=== PATIENT | female | born 1995 | race Caucasian/White ===

== ENCOUNTER 2022-12-16 12:40 | Outpatient (CLI) | payer BC, SELFPAY ==
--- NOTE | 2022-12-16 13:00 | CRLHL7_ITS ---
For Patients: As a result of the Cures Act, medical imaging exams and procedure reports are released immediately into your electronic medical record. You may view this report before your referring provider. If you have questions, please contact your health care provider. INDICATION: First trimester scan, establish dates. COMPARISON: None. TECHNIQUE: Real-time sharif-scale imaging of the pelvis was performed. FINDINGS: Sonographic imaging demonstrates a single living intrauterine gestation. The embryo demonstrates a regular cardiac rate measuring 180 beats per minute. The embryo`s crown-rump length measurement of 2.1 cm corresponds to a gestational age of 8 weeks 5 days with a sonographic due date of 07/23/2023. There is a normal-appearing yolk sac. There are no gross abnormalities noted within the embryo at this early state of development. The gestational sac has a normal appearance. There is a 3.6 x 1.1 x 2.1 cm perigestational hemorrhage. The amount of fluid within the sac appears appropriate for gestational age. The cervix is closed. The myometrium appears normal. The ovaries are of normal size. Corpus luteal left ovarian cyst is noted. There are no suspicious fluid collections noted in the cul-de-sac. IMPRESSION: Single living intrauterine with sonographic gestational age 8 weeks 5 days and sonographic due date 07/23/2023. Inferior subchorionic hemorrhage measuring 3.6 x 1.1 x 2.1 cm. Dictated by Jaya Parra MD @ 12/17/2022 5:57:43 AM (Electronically Signed)
== END 2022-12-16 12:41 | disposition home or self-care (01) ==
LOC: US 12:42
PROVIDERS: Visit Provider Advanced Practice Midwife
DX: Z34.91 Encounter for supervision of normal pregnancy, unspecified, first trimester (principal); Z3A.08 8 weeks gestation of pregnancy
CPT/HCPCS: 76817; 86703; 86803; 86850; 86900; 86901; 87340

== ENCOUNTER 2022-12-16 14:02 | Outpatient (CLI) | payer BC, SELFPAY | END 2022-12-16 14:03 | disposition home or self-care (01) | PROVIDERS: Visit Provider Advanced Practice Midwife | DX: Z34.91 Encounter for supervision of normal pregnancy, unspecified, first trimester (principal); O20.9 Hemorrhage in early pregnancy, unspecified; Z3A.08 8 weeks gestation of pregnancy | CPT/HCPCS: 86592; 86703; 86762; 86787; 86803; 86850; 86900; 86901; 87086; 87340 ==

== ENCOUNTER 2022-12-30 10:23 | Outpatient (CLI) | payer BC, SELFPAY | END 2022-12-30 10:24 | disposition home or self-care (01) | PROVIDERS: Visit Provider Advanced Practice Midwife | DX: O20.9 Hemorrhage in early pregnancy, unspecified (principal) | CPT/HCPCS: 84702 ==

== ENCOUNTER 2022-12-31 14:47 | Outpatient (CLI) | payer BC, SELFPAY ==
--- NOTE | 2022-12-31 15:00 | CRLHL7_ITS ---
For Patients: As a result of the Century Cures Act, medical imaging exams and procedure reports are released immediately into your electronic medical record. You may view this report before your referring provider. If you have questions, please contact your health care provider. INDICATION: First trimester scan, establish dates. COMPARISON: 12/16/2022 TECHNIQUE: Real-time sharif-scale imaging of the pelvis was performed. FINDINGS: Sonographic imaging demonstrates a single living intrauterine gestation. The embryo demonstrates a regular cardiac rate measuring 176 beats per minute. The embryo`s crown-rump length measurement of 4.2 cm corresponds to a gestational age of 11 weeks 1 day with a sonographic due date of 07/21/2023. There is a normal-appearing yolk sac. There are no gross abnormalities noted within the embryo at this early state of development. The gestational sac has a normal appearance. There is no evidence of a perigestational hemorrhage. The amount of fluid within the sac appears appropriate for gestational age. The cervix is closed. The myometrium appears normal. Right ovary appears normal. Left ovary not visualized. There are no suspicious fluid collections noted in the cul-de-sac. IMPRESSION: Single living intrauterine with sonographic gestational age 11 weeks 1 day and sonographic due date 07/21/2023. Small right fundal subchorionic hemorrhage measuring 5 x 7 x 6 millimeters. Previously noted inferior subchorionic hemorrhage is no longer present. Dictated by Jaya Parra MD @ 12/31/2022 4:43:57 PM (Electronically Signed)
== END 2022-12-31 14:48 | disposition home or self-care (01) ==
LOC: US 14:47
PROVIDERS: Visit Provider Advanced Practice Midwife
DX: Z34.91 Encounter for supervision of normal pregnancy, unspecified, first trimester (principal); O20.9 Hemorrhage in early pregnancy, unspecified; Z3A.11 11 weeks gestation of pregnancy
CPT/HCPCS: 76817

== ENCOUNTER 2023-03-10 07:55 | Outpatient (CLI) | payer SELFPAY ==
--- NOTE | 2023-03-10 08:15 | CRLHL7_ITS ---
For Patients: As a result of the Century Cures Act, medical imaging exams and procedure reports are released immediately into your electronic medical record. You may view this report before your referring provider. If you have questions, please contact your health care provider. INDICATION: Evaluate anatomy. COMPARISON: 12/31/2022 TECHNIQUE: Real time shairf scale imaging of the fetus was performed as well as color Doppler analysis of the umbilical vessels. FINDINGS: Sonographic imaging demonstrates a single living intrauterine gestation. Fetus demonstrates a regular cardiac rate of 147 beats per minute. Fetus has a vertex position. The placenta lies posteriorly without evidence of placenta previa. The edge of the placenta is located 10.7 cm from the internal cervical os. Amniotic fluid volume appears normal. Single deepest vertical pocket: 3.6 cm. The cervix is closed and measures 3.5 cm in length. The composite ultrasound gestational age is calculated at 21 weeks 1 day with an estimated sonographic due date of 07/20/2023. The estimated weight is 404 grams which lies at the 70th %. The following biometric measurements were obtained: Biparietal diameter: 5.0 cm/21 weeks 0 days 63rd% Head circumference: 18.6 cm/20 weeks 6 days 51st% Abdominal circumference: 17.0 cm/22 weeks 0 days 83rd% Femur length: 3.3 cm/20 weeks 1 day 24th% The HC/AC ratio measures: 1.09 range (1.06-1.25) On anatomic survey, there is a normal appearance of the cerebral ventricles, cavum septi pellucidi, cisterna magna and cerebellum. The nose, lips, and facial profile appear normal. The cervical, thoracic and lumbar spine are well visualized and appear normal. There is a normal four-chamber heart view and the left and right ventricular outflow tracts appear normal. The diaphragm and stomach appear normal. The kidneys and bladder also appear normal. There is a normal three-vessel cord and cord insertion site. The four extremities appear normal. IMPRESSION: Normal OB ultrasound exam with concordance of clinical and sonographic dating. No intrinsic abnormalities noted on anatomic survey. Dictated by Jaya Parra MD @ 03/10/2023 9:48:11 AM (Electronically Signed)
== END 2023-03-10 07:56 | disposition home or self-care (01) ==
LOC: US 07:56
PROVIDERS: Visit Provider Advanced Practice Midwife
DX: Z34.92 Encounter for supervision of normal pregnancy, unspecified, second trimester (principal); Z3A.21 21 weeks gestation of pregnancy
CPT/HCPCS: 76805

== ENCOUNTER 2023-04-28 08:39 | Outpatient (CLI) | payer SELFPAY | END 2023-04-28 08:40 | disposition home or self-care (01) | LOC: NFLDREF 05-02 00:10 | PROVIDERS: Visit Provider Advanced Practice Midwife | DX: Z34.93 Encounter for supervision of normal pregnancy, unspecified, third trimester (principal) | CPT/HCPCS: 86592 ==

== ENCOUNTER 2023-05-30 06:54 | Outpatient (CLI) | payer BC, SELFPAY ==
--- NOTE | 2023-05-30 07:15 | CRLHL7_ITS ---
For Patients: As a result of the Century Cures Act, medical imaging exams and procedure reports are released immediately into your electronic medical record. You may view this report before your referring provider. If you have questions, please contact your health care provider. INDICATION: 28 year-old female. History of intrauterine growth retardation with a prior . TECHNIQUE: Transabdominal obstetrical ultrasound. FINDINGS: Single living intrauterine in vertex presentation. Posterior placenta. heart rate 125 beats per minute. Normal amniotic fluid. Single deepest pocket measurement 5.1 cm. Biparietal diameter 8.2 cm, 32 weeks 6 days, 57th percentile. Head circumference 29.4 cm, 32 weeks 3 days, 17th percentile. Abdominal circumference 30.9 cm, 34 weeks 6 days, greater than the 97th percentile. Femur length 6.1 cm, 31 weeks 4 days, 20th percentile. Composite calculated ultrasound age 33 weeks 0 days with a sonographic due date of July 18, 2023. Estimated weight 2212 g which lies at the 78th percentile. The head to abdominal circumference ratio is just below the lower limit of normal measuring 0.95 (0.96-1.11). IMPRESSION: Single living intrauterine in vertex presentation. Composite calculated ultrasound age 33 weeks 0 days with a sonographic due date of July 18, 2023. Dictated by Leonard Arriaza MD @ 05/30/2023 9:52:04 AM (Electronically Signed)
== END 2023-05-30 06:55 | disposition home or self-care (01) ==
PROVIDERS: Visit Provider Advanced Practice Midwife
DX: O09.293 Supervision of pregnancy with other poor reproductive or obstetric history, third trimester (principal); Z87.59 Personal history of other complications of pregnancy, childbirth and the puerperium; Z3A.33 33 weeks gestation of pregnancy
CPT/HCPCS: 76816

== ENCOUNTER 2023-06-28 09:22 | Outpatient (CLI) | payer BC, SELFPAY ==
[2023-06-29 12:30] LABS: Strep B DNA Probe Negative (Negative); Strep B Susceptibility Needed? No
== END 2023-06-28 09:23 | disposition home or self-care (01) ==
LOC: NFLDREF 09:22
PROVIDERS: Visit Provider Advanced Practice Midwife
DX: Z34.93 Encounter for supervision of normal pregnancy, unspecified, third trimester (principal)
CPT/HCPCS: 87081; 87653

== ENCOUNTER 2023-07-17 15:50 | Inpatient (IN) | payer BC, SELFPAY ==
[2023-07-17] VITALS (52 sets, daily range): BP systolic 96–126; BP diastolic 49–81; PULSE 74–168; RESP 16; TEMP 36.7–37; O2SAT 91–100; BMI 28.0
[2023-07-17] MEDS: LACTATED RINGERS 1000 ML 1,000 ML 1200 ML IV (16:15)
--- NOTE | 2023-07-17 16:15 | P.LDBA_ITS ---
Subjective History of Present Illness Time Seen by Provider: 16:40 Date Seen: 07/17/23 Specific Issues/Plans Calvin H & P done 07/07/23 by Bhumika Cortés 1. Hx of IUGR -growth u/s at 32 weeks: EFW 78% -20 wk: EFW 70% 2. Hx of depression. Stable on Lexapro -increased anxiety noted at 15 wks. Dose increased to 20 mg. Did also discuss option of buspar if needed, or vistaril for sleep. -Doing well at 20 wks. Is also set up with [facility] if she wants to continue with therapy 3. Back problems in . Injured back at work early on. Continued to struggle w/ pain even w/ 25 lb lifting restriction. Taken off work. 4. Anemia, hgb 10.4 at 28 weeks Recommend QOD iron supplement COVID: declines Flu:05/30/2023 TDAP: 05/12/2023 RSV: 05/30/2023 32wk Mental Health: 06/13/2023 34wk Hgb: Comments: Kaci is being admitted to Labor and Delivery for active labor. She is a 28 year old G 2 P 1 at?39.1 weeks gestation. Her full history and physical was dictated by Bhumika Cortés CNM on 07/07/23. Please see this for details. ? She states ctx started around 0945, becoming more intense as the day progressed. She is coping well with labor pain/contractions, breathing through them. Denies SROM at this time. Her Calvin is with her for support. She is planning an epidural for pain management, which is being placed at this time. OB - Problem Based A/P Additional Plan (1) Active labor at term: Status: Acute (2) Supervision of other normal : Status: Acute (3) Anxiety during : Status: Acute (4) Depression: Problem details: Stable on lexapro Status: Acute (5) History of prior with IUGR : Status: Acute Plan Assessment:?? at 39.1 weeks gestation?? GBS neg Patient is coping well with challenges of labor.?? Labor type: Spontaneous, Active labor? complicated by: -Hx of IUGR. EFW 78% at 32 wks -back pain r/t work injury -hx of depression, stable on current Lexapro dose ? Plan:?? * Admit to L & D? * IV access: placed per epidural protocol * Monitoring: continuous r/t epidural * Candidate for analgesia of choice.? Planning epidural for pain management * Expectant management at this time * Anticipate progress to NVD Delivery/Labor/Induction Plan Plan: expectant management OB Exam Physical Exam Narrative: VSS, afebrile? General Appearance:? Calm, cooperative.? No acute distress.? Normal affect.? Psychiatric Exam: Alert and oriented, appropriate affect? HEENT: normocephalic, neck supple, full ROM? Respiratory:? Symmetrical chest wall movement.? Normal respiratory effort.? Dmitriy ar to auscultation? Cardiac:? regular rate and rhythm? Abdomen: Gravid, non tender? Extremities:? normal and trace edema? Skin: warm, dry.??? Ctx:? Q 3 min apart.? ? ? Strong? FHTs:? Baseline: 135.? Variability: moderate.?? Accels: present.??? Decels:? none.? SVE: 5/100/-1 per RN Membranes: intact? Detailed Labor and Delivery Exam Patient Gravid: Yes
[2023-07-17] MEDS: fentaNYL 100 MCG/2 ML inj 50 MCG IVP (16:16)
[2023-07-17 16:17] LABS: Basophils Percent Auto 0.2 % (0.0-3.0); Eosinophils Percent Auto 1.8 % (0.0-7.0); Hematocrit 38.1 % (33.0-51.0); Immature Granulocytes Pct Auto 0.5 %; Lymphocytes Percent Auto 13.5 % (20-44); Mean Corpuscular HGB Conc 34 gm/dL (32-36); Mean Corpuscular Hemoglobin 30 pg (26-34); Mean Corpuscular Volume 87 fL (80-100); Monocytes Percent Auto 6.3 % (0.0-11.0); Neutrophils Percent Auto 77.7 % (42.0-72.0); Platelet Count* 197 K/uL (140-440); RDW Coefficient of Variation % 12.7 % (11.5-15.5); White Blood Count* 13.08 K/uL (4.50-11.00)
[2023-07-17 16:21] LABS: Slide Review Reflex No
[2023-07-17] MEDS: ROPIVACAINE 0.2% 100 ml 100 ML 12 MG EPIDURAL (16:48)
[2023-07-17] MEDS: fentaNYL 100 MCG/2 ML inj EPIDURAL (16:49)
[2023-07-17] MEDS: LIDOCAINE 2% (PF) 5 ML VIAL EPIDURAL (16:49)
[2023-07-17] MEDS: PHENYLEPHRINE 100 MCG/ML SYRINGE IVP ×3 (16:56→17:46)
[2023-07-17] MEDS: LACTATED RINGERS 1000 ML 1,000 ML 125 ML IV (17:17)
--- NOTE | 2023-07-17 17:17 | P.ANBPRC_ITS ---
[facility] Medical History Normal spontaneous vaginal delivery ?O80 - Encounter for full-term uncomplicated delivery (ICD-10) Surgical History Hx of appendectomy ?Z90.49 - Acquired absence of other specified parts of digestive tract (ICD- 10) Social History Narrative: SOCIAL? ? Education: some college? ? Work: Works for [employer] ? ? Partner: Calvin ? Lives with: Calvin, son, step daughter 50% of the time? ? Pets: chickens, cats, pigs, cows. ? ? Abuse: Denies past Safe at home with current partner ? ? Special Diet: Denies? ? Ok with a blood transfusion: yes? ? Culture or spiritism beliefs: denies? RISK FACTORS? ? Exercise Times/wk: Working, daily chores? ? Depression/Anxiety: anxiety? ? Previous Treatments Taking lexapro. Therapy: denies IRENE: 2.5 PHQ 9: 3? ? Seat Belt Use: Routinely ? Smoking: Denies past/present? ?Smoked about 5 years, 1 pack per day Alcohol/day: Denies while ? ? Caffeine: 2 pops a day? ? Drug Use: Denies past/present? ? Smoking Status: Former smoker Little interest or pleasure in doing things: several days Feeling down, depressed, or hopeless: not at all Meds Home Medications and Allergies Home Medications Medication Instructions Recorded Confirmed Type docosahexaenoic acid 200 mg mg PO 08/27/22 07/14/23 History capsule ( DHA) cholecalciferol (vitamin D3) 25 50 mcg PO QDAY 12/16/22 07/14/23 History mcg (1,000 unit) capsule famotidine 20 mg tablet (Pepcid) 20 mg PO QDAY 04/28/23 07/14/23 History ferrous sulfate 325 mg (65 mg 325 mg PO QDAY 05/12/23 07/14/23 History iron) tablet (Miquel-Time) Allergies Allergy/AdvReac Type Severity Reaction Status Date / Time Penicillins Allergy Intermediate Rash Verified 01/11/24 08:52 Results Labs Labs: Laboratory Results - last 24 hr 07/17/23 16:05 WBC 13.08 H RBC 4.40 Hgb 13.0 Hct 38.1 MCV 87 MCH 30 MCHC 34 RDW Coeff of Keke 12.7 Plt Count 197 Neut % (Auto) 77.7 H Lymph % (Auto) 13.5 L Sunflower % (Auto) 6.3 Eos % (Auto) 1.8 Baso % (Auto) 0.2 Neut # (Auto) 10.20 H Lymph # (Auto) 1.80 Sunflower # (Auto) 0.80 Eos # (Auto) 0.20 Baso # (Auto) 0.00 Abs Immat Gran (auto) 0.10 Imm/Tot Granulo (auto) 0.5 Vital Signs Vital Signs: Last Vital Signs Pulse 90 07/17/23 17:16 BP 98/58 L 07/17/23 17:16 Pulse Ox 91 07/17/23 16:46 Anesthesia Procedures Epidural Insertion Patient Location: OB Start Time: 16:30 Stop Time: 17:00 Start Date: 07/17/23 Stop Date: 07/17/23 Reason for Block: procedure for pain Patient Position: sitting Performed By: Chirag Dillard Preanesthetic Checklist: IV checked, risks and benefits discussed, monitors and equipment checked, pre-op evaluation, timeout performed and anesthesia consent Prep: chlorhexidine gluconate Monitoring: blood pressure monitoring, continuous pulse oximetry and heart rate Approach: midline Vertebral Space: lumbar (1-5) Epidural Technique: ALCON saline Needle Type: Tuohy needle Injection Technique: continuous catheter Needle gauge: 17 Needle Length (cm): 10 cm Needle Insertion Depth (cm): 6 Catheter Gauge: 19 Catheter Type: multi-orifice Catheter at skin depth (cm): 12 Test Dose Result: negative and lidocaine 1.5% with epinephrine 1 to 200,000
[2023-07-17] MEDS: ePHEDrine sulfate 5 MG/ML inj 10 MG IVP (17:59)
[2023-07-17] MEDS: CALCIUM CARBONATE 500 MG CHEW PO (18:15)
[2023-07-17] MEDS: ONDANSETRON 2 MG/ML inj 4 MG IV ×2 (18:15→23:52)
[2023-07-17] MEDS: ACETAMINOPHEN 500 MG TABLET 1000 MG PO (20:44)
[2023-07-18] VITALS (18 sets, daily range): BP systolic 94–129; BP diastolic 52–79; PULSE 71–129; RESP 16; TEMP 36.4–37.1; O2SAT 96–98
[2023-07-18] MEDS: ROPIVACAINE 0.2% 100 ml 100 ML 12 MG EPIDURAL (00:19)
--- NOTE | 2023-07-18 02:29 | W.PM.OBVAGDE ---
OB Procedure Vag Delivery Mother Details Mother Details: The patient is a 28 year-old, 2, now Para 2, admitted on 07/17/23 at 39.1 Days gestation. Delivered at 39.2 weeks. : 2 Para: 2 Weeks Gestation: 39.2 Admission Date: 07/17/23 Additional Details Amniotic Membrane Status: SROM Amniotic Membrane Rupture Date: 07/18/23 Amniotic Membrane Rupture Time: 01:32 Amniotic Membrane Fluid Description: Clear Analgesia/Anesthesia Type: Epidural and Fentanyl Waterbirth: No Pitcoin: No (PP only for AMTSL) Intrapartal Events: None Labor Onset: 15:30 Complete: 01:13 Pushin:13 Heart: heart tones during second stage: FHTs 145, min - mod variability. Difficult to trace w/ ctx. Audible decel w/ to 90s just prior to delivery. Delivery Details Delivery Date: 07/18/23 Delivery Time: 02:10 Route of delivery: Infant Gender: Male Infant Viability: Alive; Heart Rate Present Position at Delivery: OA Delivery Details: Kaci made slow progress during labor, not feeling a strong urge to push. Noted to be complete, BBOW, and practice push done. Good descent noted. Decision made to continue to push. Increased descent noted after SROM occurred during pushing. Fingers noted alongside side of head w/ pushing. ? She pushed in sitting, left side and semi-fowlers positions effectively.? Spontaneous vaginal delivery at 0210 of?a viable?male infant.??Delivered in vertex OA position. Left hand noted at neck and left arm delivered w/ shoulders. ??Shoulders delivered easily. ?Infant placed on maternal abdomen.??Stimulated, good tone noted, but not crying. Decision made to clamp and cut cord and take baby to warmer for further assessment. ? Shoulder dystocia: no? Nuchal cord: no? Meconium stained?fluid: no? Water : no? ? ? 7 at 1 minute and 8 at 5 minutes.? ? Placenta delivered spontaneously and?complete?at 0214 with a?3 vessel?cord.?? Bleeding controlled with fundal massage and?pitocin?for AMTSL.? ? Mother and were stable after delivery.? ? Lacerations:? No lacerations noted ? Bleeding?post delivery?was: minimal. ?The fundas was firm to palpation.? Blood loss: 50?mL.? Blood loss measurement type: QBL? ? ? Sponge,?lap?and needles counts are correct.? Mother and infant were stable after delivery.? 1 Minute Interval Total Score: 7 5 Minute Interval Total Score: 8 Additional Details Shoulder Dystocia: No Placenta Delivery Time: 02:14 Placental Delivery Description: Spontaneous Procedure Done: Global Blood Loss: 50 Laceration: None Blood Loss Measurement Type: QBL Bakri Used: No Sponge/Need Count Correct: Yes Cord Vessel Description: 3 Vessels Event Summary Status: Mother and were stable after delivery. Disposition: floor
[2023-07-18] MEDS: IBUPROFEN 600 MG TABLET PO (08:24)
[2023-07-18] MEDS: DOCUSATE SODIUM 100 MG CAPSULE PO (08:25)
[2023-07-18] MEDS: ACETAMINOPHEN 500 MG TABLET 1000 MG PO (23:25)
[2023-07-19 00:08] VITALS: BP 102/67; PULSE 76; RESP 15; TEMP 36.6; O2SAT 95
--- NOTE | 2023-07-19 07:27 | P.DS_ITS ---
DS: Providers Provider Time Seen by Provider: 07:27 Date Seen: 07/19/23 Date of admission: 07/17/23 15:50 Primary care physician: Not a Local Provider Admitting Clinician: Dorothy Cortés CNM Attending Physician on discharge: Dorothy Cortés CNM Date of Discharge: 07/19/23 DS: Diagnosis Discharge Diagnosis (1) examination following vaginal delivery: Status: Acute (2) NVD (normal vaginal delivery): Status: Acute (3) Lactating mother: Status: Acute (4) Anxiety during : Status: Acute (5) Depression: Status: Acute Problem details: Stable on lexapro Exam Narrative: Exam Narrative: VSS, afebrile GENERAL APPEARANCE: ?normal affect, alert, no distress MOOD: ?appropriate HEENT: normocephalic, neck supple, full ROM CHEST: ?Symmetrical chest wall movement. ?Normal respiratory effort. ?Clear to auscultation HEART: ?regular rate and rhythm ABDOMEN: ?soft, non-tender. Uterine fundus is firm, 1 above Umbilicus, Midline and is appropriate for the stage of recovery. ?Bowel sounds present. PERINEUM: ?mild edema of the perineum, there are no lacerations EXTREMITIES: ?normal and no edema Const: Vital Signs, click to edit/add: Vital Signs - 24 hr 07/18/23 08:18 07/18/23 12:25 07/18/23 15:44 Temperature 97.5 F L 97.5 F L 97.5 F L Pulse Rate [Pulse Oximeter] 76 76 71 Respiratory Rate 16 16 16 Blood Pressure [le ft] 110/73 102/65 107/70 Pulse Oximetry 98 98 98 Oxygen Delivery Me thod Room Air Room Air Room Air 07/18/23 20:00 07/19/23 00:08 Temperature 98.6 F 97.9 F Pulse Rate [Pulse Oximeter] 72 76 Respiratory Rate 16 15 Blood Pressure [le ft] 95/58 L 102/67 Pulse Oximetry 95 Oxygen Delivery Me thod Room Air Room Air Documenting provider has reviewed patient's vital signs: yes OB - DS: Summary Hospital Course Hospital Course: Kaci is a 28 y.o. G 2 P 2 who was admitted to L & D for active labor. ?She had an uncomplicated NVD The patient feels well. ?The pain is well controlled with current medications. ?She has no new complaints. ?She is breast feeding and reports things are going well.? the patient has done well.? Vitals have been stable.? She has remained afebrile.? Has a good appetite, is tolerating a general diet. ?She is voiding without difficulty.? She is passing gas and has had a bowel movement.? She is ambulating and denies any dizziness.? Has Small amount of rubra lochia. She is planning mini pill for prevention. Problems: none plan: Discharge home with baby. Follow up in 2 weeks and 6 weeks. , may follow up with if needed Peripartum Data Infant delivery method: Vaginal Laceration description: None complications: none [place] Gender: Male Discharge Plan: Home Status at Discharge Functional status at discharge: independent ambulation Overall status at discharge: patient is progressing back to baseline Time Spent with Patient Time attestation: Total time spent providing and/or coordinating discharge services: Time spent: Less than 30 minutes Discharge Plan Discharge Disposition: Home, Self-Care Date of Admission: 07/17/23 15:50 Attending Provider on Discharge: Dorothy Cortés Primary Care Provider: Provider,Not a Local Condition: Stable Anticipated Discharge Date/Time: 07/19/23 12:00 Discharge Medications: New docusate sodium 100 mg Capsule 100 mg PO BID PRNQty: 100 0RF Rx Instructions: Take 1 cap 1-2 times a day as needed for constipation. ibuprofen 600 mg Tablet 600 mg PO Q6H PRNQty: 60 0RF Continued DHA 200 mg capsule 200 mg PO DAILY cholecalciferol (vitamin D3) 25 mcg (1,000 unit) capsule 50 mcg PO QDAY escitalopram oxalate [Lexapro] 20 mg tablet 20 mg PO QDAY Qty: 90 2RF famotidine [Pepcid] 20 mg tablet 20 mg PO QDAY Discontinued ondansetron HCl 4 mg tablet 4 mg PO Q6H PRN (Reason: nausea and vomiting) Qty: 30 1RF ferrous sulfate [Miquel-Time] 325 mg (65 mg iron) tablet 325 mg PO QDAY Discharge Orders: Discharge Order (Routine); Ordered 07/19/23 Ordered By: Dorothy Cortés Patient Education: OB Over the Counter Medication Information, OB Vaginal/Breast Feeding Additional Instructions: Follow up in 2 weeks and 6 weeks Activity Level: Activity as Tolerated Discharge Diet: Regular Follow Up Appointments: Provider,Not a Local [Primary Care Provider] - Forms: [employer] Info Instructions
[2023-07-19] MEDS: DOCUSATE SODIUM 100 MG CAPSULE PO (08:47)
[2023-07-19 08:48] VITALS: BP 103/70; PULSE 69; RESP 16; TEMP 36.3; O2SAT 97
--- NOTE | 2023-07-19 12:38 | PM.ANPOST ---
Post Anesthesia Note Post Anesthesia Note Patient seen: Inpatient Respiratory Status: adequate Cardiovascular Status: adequate Mental Status: baseline Pain: adequate Temp: baseline Anesthetic awareness: N/A Complications: none Follow care: none
== END 2023-07-19 10:50 | disposition home or self-care (01) | DRG 560 ==
LOC: OB OUT 15:51 → OB 15:51
PROVIDERS: Admitting Provider Advanced Practice Midwife; Visit Provider Advanced Practice Midwife
DX: O99.344 Other mental disorders complicating childbirth (principal); F32.A Depression, unspecified; F41.9 Anxiety disorder, unspecified; Z3A.39 39 weeks gestation of pregnancy; Z37.0 Single live birth; O99.02 Anemia complicating childbirth; D64.9 Anemia, unspecified
CPT/HCPCS: 01967; 36415; 85025; 86850; 86900; 86901; A9270; J2371; J2405; J2795; J3010; J7120

== ENCOUNTER 2024-05-11 09:22 | Outpatient (CLI) | payer BC, SELFPAY ==
--- NOTE | 2024-05-11 09:30 | CRLHL7_ITS ---
For Patients: As a result of the Century Cures Act, medical imaging exams and procedure reports are released immediately into your electronic medical record. You may view this report before your referring provider. If you have questions, please contact your health care provider. INDICATION: First trimester scan, establish dates. TECHNIQUE: Real-time sharif-scale imaging of the pelvis was performed. FINDINGS: Sonographic imaging demonstrates a single living intrauterine gestation. The embryo demonstrates a regular cardiac rate measuring 176 beats per minute. The embryo`s crown-rump length measurement of 1.7 cm corresponds to a gestational age of 8 weeks 1 day with a sonographic due date of 12/20/2024. There is a normal-appearing yolk sac. IMPRESSION: Normal first trimester OB ultrasound exam. Gestational age calculated at 8 weeks 1 day with a sonographic due date of 12/20/2024 . Dictated by Rama Young MD @ 05/14/2024 9:03:12 AM (Electronically Signed)
== END 2024-05-11 09:23 | disposition home or self-care (01) ==
LOC: US 09:23
PROVIDERS: PCP Family Medicine; Visit Provider Advanced Practice Midwife
DX: Z34.91 Encounter for supervision of normal pregnancy, unspecified, first trimester (principal); Z3A.08 8 weeks gestation of pregnancy
CPT/HCPCS: 76817; 86592; 86703; 86704; 86706; 86762; 86787; 86803; 86850; 87086; 87340

== ENCOUNTER 2024-07-12 16:26 | Emergency (ER) | payer BC, SELFPAY ==
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
[2024-07-12 16:48] VITALS: BP 113/75; PULSE 91; RESP 20; TEMP 36.8; O2SAT 95; BMI 26.5
[2024-07-12 17:48] VITALS: BP 94/71; PULSE 88; RESP 14; O2SAT 95
--- NOTE | 2024-07-12 17:52 | ED_ITS ---
HPI - General Adult General Date Seen: 07/12/24 Chief complaint: Shortness of Breath/Dyspnea Stated complaint: Shortness of breath Time Seen by Provider: 07/12/24 16:32 Source: patient Mode of arrival: ambulatory Limitations: no limitations History of Present Illness HPI narrative: Patient is a 29-year-old female presenting to emergency department for chest pain, shortness of breath, lightheadedness. She is currently 18 weeks . She states she began to feel short of breath yesterday and symptoms have persisted and today. Today also when she was bringing laundry downstairs she states she nearly fainted. Continues to have some lightheadedness when she is up and moving around. Lightheadedness resolves when she sits down or lays down. States she has some mild lightheadedness with her previous pregnancies but not this bad. Has not had any other complications during the . States she has been drinking plenty of fluids and does not dehydrated. Has also had some mild left-sided chest pain. She describes it as congestion feeling that began 2 months ago that has been gradually getting worse and now for the day come more consistent chest pain. Has never had pain like this before. No history of sudden cardiac at a young age in family members. Denies fevers, chills, dizziness, weakness, abdominal pain, diarrhea, constipation, headache, vision changes. No other concerns noted. Related Data Home Medications ?Medication ?Instructions ?Recorded ?Confirmed docosahexaenoic acid 200 mg 200 mg PO DAILY 08/27/22 06/19/24 capsule ( DHA) cholecalciferol (vitamin D3) 25 50 mcg PO QDAY 12/16/22 06/19/24 mcg (1,000 unit) capsule docusate sodium 100 mg capsule 100 mg PO QDAY 05/11/24 06/19/24 (Colace) Previous Rx's ?Medication ?Instructions ?Recorded ondansetron HCl 4 mg tablet 4 mg PO Q6H PRN nausea and 05/11/24 vomiting #30 tabs Allergies Allergy/AdvReac Type Severity Reaction Status Date / Time Penicillins Allergy Intermediate Rash Verified 06/19/24 08:50 Review of Systems Status of ROS: Reports: 10 or more systems reviewed and unremarkable except as noted in History and below [facility] Medical History History of prior with IUGR ?Z87.59 - Personal history of other complications of , childbirth and the puerperium (ICD-10) Normal spontaneous vaginal delivery ?O80 - Encounter for full-term uncomplicated delivery (ICD-10) Surgical History Hx of appendectomy ?Z90.49 - Acquired absence of other specified parts of digestive tract (ICD- 10) Family History Paternal Grandfather Prostate cancer Other Breast cancer Social History Narrative: SOCIAL? ? Education: some college? ? 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 ? ? Partner: Calvin ? Lives with: Calvin, two sons, step daughter 50% of the time? Pets: chickens, cats, cows. ? ? Abuse: Denies past Safe at home with current partner ? ? Special Diet: Denies? ? Ok with a blood transfusion: yes? ? Culture or jehovah's witness beliefs: denies? RISK FACTORS? ? Exercise Times/wk: Working, daily chores? ? Depression/Anxiety: anxiety? ? Previous Treatments Taking lexapro. Therapy: denies Seat Belt Use: Routinely ? Smoking: Denies past/present? ?Smoked about 5 years, 1 pack per day Alcohol/day: Denies while ? ? Caffeine: Coffee and maybe a pop ? Drug Use: Denies past/present? ? MRSA: no history Chicken pox: as a child What is your current living situation?: I presently have a place to live Problems where you live: mold, water leaks and no known problems In the past 12 months, utilities in danger of being shut off: no In past 12 months, lack of transportation kept you from medical appts, meetings, work, or getting things needed for daily living: no In the past 12 mos, have been you worried that your food would run out before you had money to buy more?: never true In the past 12 mos, the food you bought just didn't last and you didn't have money to buy more?: never true Smoking Status: Former smoker How often do you have a drink containing alcohol: never AUDIT-C Alcohol total score: 0 Non-prescribed substance use: denies use How often does anyone, including family, friends and others, physically hurt you : never How often does anyone, including family, friends and others, insult or talk down to you: never How often does anyone, including family, friends and others, threaten you with harm: never How often does anyone, including family, friends and others, scream or curse at you: never Health Related Social Needs: Inadequate housing (Z59.1) Exam Narrative: Exam Narrative: Const: Well-nourished, Well-developed, in mild distress Eyes: PERRL, no conjunctival injection, and symmetrical lids HENT: Atraumatic external nose and ears. Moist mucous membranes. Neck: Symmetric, trachea midline, No thyromegaly. CVS: RRR, No murmurs or gallops. Peripheral pulses 2+ and equal in all extremities RESP: Unlabored respiratory effort. Clear to auscultation bilaterally. GI: Nontender/Nondistended, No rebound or guarding. MSK:Extremities w/o deformity, Normal Active ROM Skin: Warm, Dry. No rashes or lesions. Neuro: Normal Muscle tone, No focal neurological deficits. Psych: Awake, Alert, & Oriented x3. Appropriate mood and affect. Const: Vital Signs, click to edit/add: Vital Signs - 24 hr 07/12/24 16:48 Temperature 98.2 F Pulse Rate [Pulse Oximeter] 91 Respiratory Rate 20 Blood Pressure [Ri ght Upper Arm] 113/75 Pulse Oximetry 95 Oxygen Delivery Me thod Room Air Course Vital Signs Vital signs: Initial Vital Signs Temperature 98.2 F 07/12/24 16:48 Temperature Source Temporal Artery Scan 07/12/24 16:48 Pulse Rate 91 07/12/24 16:48 Respiratory Rate 20 07/12/24 16:48 Blood Pressure 113/75 07/12/24 16:48 Blood Pressure Mean 87 07/12/24 16:48 Blood Pressure Position Sitting 07/12/24 16:48 Pulse Oximetry 95 07/12/24 16:48 Oxygen Delivery Method Room Air 07/12/24 16:48 Vital Signs Temperature 98.2 F 07/12/24 16:48 Pulse Rate 91 07/12/24 16:48 Respiratory Rate 20 07/12/24 16:48 Blood Pressure 113/75 07/12/24 16:48 Pulse Oximetry 95 07/12/24 16:48 Oxygen Delivery Method Room Air 07/12/24 16:48 Temperature 98.2 F 07/12/24 16:48 Pulse Rate 91 07/12/24 16:48 Respiratory Rate 20 07/12/24 16:48 Blood Pressure 113/75 07/12/24 16:48 Pulse Oximetry 95 07/12/24 16:48 Oxygen Delivery Method Room Air 07/12/24 16:48 Medical Decision Making MDM Narrative Medical decision making narrative: Patient is a 29-year-old female presenting to emergency department for shortness of breath and lightheadedness. Considering she is currently there is some concern for a PE. Explained to her the risks versus benefits of checking for PE possibly needing radiation. She is agreeable to evaluation. Will order a D-dimer 1st. Also do an EKG and troponin to look for signs of ACS along with the CBC, BMP, COVID/flu/RSV to look for any other electrolyte abnormalities or signs of infection. Lab work all returned showing no concerning abnormalities. EKG reviewed by myself shows no acute concerning abnormalities. Troponin within normal limits. Considering when symptoms started and not believe repeat troponin is necessary. D-dimer within normal limits a chest x-ray ordered to look for signs pneumonia or pneumothorax. Viral swabs are negative. Chest x-ray reviewed by myself the radiologist shows no acute concerning abnormalities. Orthostatic blood pressures were normal although her heart rate did increase. This is likely secondary to some mild dehydration as she is and does require more fluids than normal. She was asymptomatic throughout this and on her walk to the Radiology Department for x-ray. At this point I believe she is safe for discharge. She is agreeable to this plan Lab Data Labs: Lab Results 07/12/24 Range/Units 17:50 WBC 8.42 (4.50-11.00) K/uL RBC 4.35 (4.00-5.20) m/uL Hgb 12.8 (12.0-16.0) gm/dL Hct 37.2 (33.0-51.0) % MCV 86 (80-100) fL MCH 29 (26-34) pg MCHC 34 (32-36) gm/dL RDW Coeff of Keke 12.9 (11.5-15.5) % Plt Count 249 (140-440) K/uL Neut % (Auto) 49.1 (42.0-72.0) % Lymph % (Auto) 32.9 (20-44) % [place] % (Auto) 7.7 (0.0-11.0) % Eos % (Auto) 9.3 H (0.0-7.0) % Baso % (Auto) 0.8 (0.0-3.0) % Neut # (Auto) 4.13 (1.7-7.0) K/uL Lymph # (Auto) 2.77 (0.90-2.90) K/uL [place] # (Auto) 0.60 (0.00-0.90) K/UL Eos # (Auto) 0.80 H (0.00-0.50) K/uL Baso # (Auto) 0.07 (0.00-0.30) K/uL Abs Immat Gran (auto) 0.02 (0.00-0.30) K/uL Imm/Tot Granulo (auto) 0.2 % D-Dimer Quant (PE/DVT) 0.26 (0.00-0.50) ug/ml Sodium 134 L (135-149) mmol/L Potassium 3.4 L (3.6-5.1) mmol/L Chloride 107 (96-114) mmol/L Carbon Dioxide 21 (20-32) mmol/L Anion Gap 6 L (7-15) mEq/L BUN 5 (5-24) mg/dL Creatinine 0.4 L (0.5-1.5) mg/dL Estimated Creat Clear 167.09 Estimated GFR 139 ml/min Glucose 74 (60-115) mg/dL Calcium 8.6 (8.4-10.6) mg/dL SARS-CoV-2 (PCR) Negative SARS-CoV-2 (Negative) Influenza Type A (PCR) Negative PCR FLU A (Negative) Influenza Type B (PCR) Negative PCR FLU B (Negative) RSV (PCR) Negative PCR RSV (Negative) POC Troponin I 0.01 (0.01-0.04) ng/ml Imaging Data Chest x-ray: Attestation: I have reviewed the pertinent imaging results. Radiologist's impression: No acute cardiopulmonary findings. Dictated by Randa Allen MD @ 07/12/2024 7:04:51 PM ECG Data Attestation: I personally reviewed and interpreted this ECG as follows: Prior ECG tracings: not available for review Interpretation: Normal sinus rhythm with rate 94 beats per minute, normal intervals, normal axis, no ST or T-wave abnormalities. Discharge Plan Discharge Clinical Impression: Near syncope, Shortness of breath, Atypical chest pain Patient Disposition: Home, Self-Care Condition: Improved Instructions: Near Syncope (ED) Additional Instructions: If symptoms persist I recommend following up with her primary care provider. Make sure to stay well hydrated as your fluid need does increase during . Return for new or worsening symptoms. Prescriptions: No Action DHA 200 mg capsule 200 mg PO DAILY cholecalciferol (vitamin D3) 25 mcg (1,000 unit) capsule 50 mcg PO QDAY docusate sodium [Colace] 100 mg capsule 100 mg PO QDAY ondansetron HCl 4 mg tablet 4 mg PO Q6H PRN (Reason: nausea and vomiting) Qty: 30 3RF Follow Up/Referrals: Jaya Patricia MD [Primary Care Provider] - Stand Alone Forms: [employer] Info Instructions
[2024-07-12 18:04] LABS: Basophils Absolute Auto 0.07 K/uL (0.00-0.30); Basophils Percent Auto 0.8 % (0.0-3.0); Eosinophils Percent Auto 9.3 % (0.0-7.0); Hematocrit 37.2 % (33.0-51.0); Hemoglobin* 12.8 gm/dL (12.0-16.0); Immature Granulocytes Abs Auto 0.02 K/uL (0.00-0.30); Immature Granulocytes Pct Auto 0.2 %; Lymphocytes Absolute Auto 2.77 K/uL (0.90-2.90); Lymphocytes Percent Auto 32.9 % (20-44); Mean Corpuscular HGB Conc 34 gm/dL (32-36); Mean Corpuscular Hemoglobin 29 pg (26-34); Mean Corpuscular Volume 86 fL (80-100); Monocytes Percent Auto 7.7 % (0.0-11.0); Neutrophils Absolute Auto 4.13 K/uL (1.7-7.0); Neutrophils Percent Auto 49.1 % (42.0-72.0); Platelet Count* 249 K/uL (140-440); RDW Coefficient of Variation % 12.9 % (11.5-15.5); Red Blood Count 4.35 m/uL (4.00-5.20); White Blood Count* 8.42 K/uL (4.50-11.00)
[2024-07-12 18:09] LABS: Slide Review Reflex No
[2024-07-12 18:11] LABS: Troponin, Point-of-Care* 0.01 ng/ml (0.01-0.04)
[2024-07-12 18:20] LABS: Chloride* 107 mmol/L (96-114); Potassium* 3.4 mmol/L (3.6-5.1); Sodium* 134 mmol/L (135-149)
[2024-07-12 18:23] LABS: Anion Gap 6 mEq/L (7-15); Carbon Dioxide* 21 mmol/L (20-32); Creatinine* 0.4 mg/dL (0.5-1.5); Est. Creatinine Clearance* 167.09; Estimated Glomerular Filt Rate 139 ml/min
[2024-07-12 18:24] LABS: Blood Urea Nitrogen* 5 mg/dL (5-24); Calcium* 8.6 mg/dL (8.4-10.6); Glucose* 74 mg/dL (60-115)
[2024-07-12 18:30] VITALS: PULSE 94; O2SAT 97
[2024-07-12 18:32] LABS: D Dimer Quantitative* 0.26 ug/ml (0.00-0.50)
[2024-07-12 18:41] LABS: PCR FLU A Negative PCR FLU A (Negative); PCR FLU B Negative PCR FLU B (Negative); PCR RSV Negative PCR RSV (Negative); SARS PCR* Negative SARS-CoV-2 (Negative)
--- NOTE | 2024-07-12 18:47 | CRLHL7_ITS ---
For Patients: As a result of the Century Cures Act, medical imaging exams and procedure reports are released immediately into your electronic medical record. You may view this report before your referring provider. If you have questions, please contact your health care provider. INDICATION: Chest pain, shortness of breath. TECHNIQUE: Chest 2 view. COMPARISON: None. FINDINGS: Cardiovascular: Heart size and vasculature are normal in caliber and appearance. Lungs and pleural spaces: Lungs are clear without focal consolidation. No sign of pleural effusion. No pneumothorax identified. Bones and soft tissues: No significant findings. IMPRESSION: No acute cardiopulmonary findings. Dictated by Randa Allen MD @ 07/12/2024 7:04:51 PM (Electronically Signed)
[2024-07-12 18:55] VITALS: BP 103/92; BP 116/45; BP 120/76; PULSE 106; PULSE 118; PULSE 75
[2024-07-12 19:30] VITALS: BP 103/92; PULSE 99; RESP 14; O2SAT 98
[2024-07-12 19:50] VITALS: BP 113/75; PULSE 91; RESP 14; TEMP 36.8
== END 2024-07-12 19:50 | disposition home or self-care (01) ==
PROVIDERS: Emergency Provider Student in an Organized Health Care Education/Training Program; PCP Family Medicine
DX: R55 Syncope and collapse (principal); R07.9 Chest pain, unspecified
CPT/HCPCS: 36415; 71046; 80048; 84484; 85025; 85379; 87631; 93005; 99284

== ENCOUNTER 2024-07-23 07:14 | Outpatient (CLI) | payer BC, SELFPAY ==
--- NOTE | 2024-07-23 07:15 | CRLHL7_ITS ---
For Patients: As a result of the Century Cures Act, medical imaging exams and procedure reports are released immediately into your electronic medical record. You may view this report before your referring provider. If you have questions, please contact your health care provider. INDICATION: survey TECHNIQUE: Conventional transabdominal two-dimensional grayscale ultrasound examination COMPARISON: 05/11/2024 FINDINGS: There is a living fetus with gestational age of 18 weeks 4 days by 1st trimester ultrasound dating and 18 weeks 5 days by today`s measurements. EDC based on 1st trimester ultrasound dating is 12/19/2024. BPD: 4.0 cm, 18 weeks Head circumference: 15.3 cm, 18 weeks 2 days Abdominal circumference: 13.2 cm, 18 weeks 5 days Femur length: 3.0 cm, 19 weeks 2 days HC/AC: 1.16 The weight is estimated at 262 grams. The heart rate is measured at 159 beats per minute and the rhythm appears regular. The head and spine are grossly intact. No gross facial abnormality is evident. The upper lip is intact. The heart and ventricular outflow tracts were suboptimally visualized due to lie. The heart and stomach appear to be on the same side. The diaphragm is intact. Two kidneys and a bladder are demonstrated. The cord insertion is normal and three cord vessels are noted. Four extremities are demonstrated. The amniotic fluid volume is within normal limits. The placenta is posterior with no evidence of previa. The cervical length is normal at 3.6 cm. IMPRESSION: 1. There is a living fetus with gestational age of 18 weeks 4 days by 1st trimester ultrasound dating and 18 weeks 5 days by today`s measurements. EDC based on 1st trimester ultrasound dating is 12/19/2024. 2. No anomaly evident. Heart and ventricular outflow tracts suboptimally visualized due to lie. Limited follow up recommended. Dictated by Jairo Walker MD @ 07/23/2024 1:02:41 PM (Electronically Signed)
== END 2024-07-23 07:15 | disposition home or self-care (01) ==
LOC: US 07:15
PROVIDERS: PCP Family Medicine; Visit Provider Advanced Practice Midwife
DX: Z34.92 Encounter for supervision of normal pregnancy, unspecified, second trimester (principal); Z3A.18 18 weeks gestation of pregnancy
CPT/HCPCS: 76805

== ENCOUNTER 2024-08-21 07:55 | Outpatient (CLI) | payer BC, SELFPAY ==
--- NOTE | 2024-08-21 08:15 | CRLHL7_ITS ---
For Patients: As a result of the Century Cures Act, medical imaging exams and procedure reports are released immediately into your electronic medical record. You may view this report before your referring provider. If you have questions, please contact your health care provider. INDICATION: Suboptimal views of heart. Portion velamentous cord insertion. TECHNIQUE: Limited transabdominal two-dimensional sharif-scale ultrasound examination. COMPARISON: 07/23/2024 FINDINGS: There is a living fetus in cephalic lie with gestational age of 23 weeks 5 days by LMP and EDC of 12/13/2024. The heart rate is measured at 154 beats per minute and the rhythm appears regular. Four cardiac chambers are demonstrated. The 3VV and 3 VT views are within normal limits as are the ventricular outflow tracts. The amniotic fluid volume is within normal limits with single deepest pocket of 3.6 cm. The placenta is posterior and superior to the cervical os. There is no evidence of previa. Again, the placental cord insertion is well supported by the placenta. IMPRESSION: 1. Living fetus in cephalic lie with gestational age of 23 weeks 5 days by LMP and EDC of 12/13/2024. 2. Heart and ventricular outflow tracts well visualized and appear to be within normal limits. 3. Placental cord insertion well supported by the placenta. Dictated by Jairo Walker MD @ 08/21/2024 10:46:06 AM (Electronically Signed)
== END 2024-08-21 07:56 | disposition home or self-care (01) ==
LOC: US 07:55
PROVIDERS: PCP Family Medicine; Visit Provider Advanced Practice Midwife
DX: O36.8320 Maternal care for abnormalities of the fetal heart rate or rhythm, second trimester, not applicable or unspecified (principal); Z3A.23 23 weeks gestation of pregnancy
CPT/HCPCS: 76816

== ENCOUNTER 2024-09-17 08:31 | Outpatient (CLI) | payer BC, SELFPAY | END 2024-09-17 08:32 | disposition home or self-care (01) | LOC: NFLDREF 09-21 02:01 | PROVIDERS: PCP Family Medicine; Referring Provider Family Medicine; Visit Provider Advanced Practice Midwife | DX: Z34.83 Encounter for supervision of other normal pregnancy, third trimester (principal) | CPT/HCPCS: 86592 ==

== ENCOUNTER 2024-10-17 08:01 | Outpatient (CLI) | payer BC, SELFPAY ==
--- NOTE | 2024-10-17 08:08 | CRLHL7_ITS ---
For Patients: As a result of the Century Cures Act, medical imaging exams and procedure reports are released immediately into your electronic medical record. You may view this report before your referring provider. If you have questions, please contact your health care provider. INDICATION: History of prior with IUGR TECHNIQUE: Ultrasound OB pelvis transabdominal. Real-time sharif-scale imaging of the fetus was performed without stress testing. Umbilical artery Doppler was performed COMPARISON: Ob ultrasound 08/21/2024 FINDINGS: Sonographic imaging demonstrates a single intrauterine gestation. Fetus demonstrates a regular cardiac rate of 135 beats per minute. Fetus has a breech orientation. Biometric measurements: Biparietal diameter: 7.5 centimeters, 3.1%, previously 4 on 07/23/2024. Head circumference: 28.1 centimeters, 3.1%, previously 3 on 07/23/2024. Abdominal circumference: 26 centimeters, 8.7%, previously 19 on 07/23/2024. Femur length: 5.4, less than 3%, previously 32 on 07/23/2024. Estimated weight: 1451 grams, less than 3rd percentile, previously 13th percentile. Estimated ultrasound age by today`s measurements is 29 weeks, 6 days. Amniotic fluid volume appears normal. breathing movements, motion, and tone were all reported. Normal umbilical artery Doppler waveform without reversal or absence of diastolic flow. S/D: 3.3. IMPRESSION: Sánchez intrauterine in breech presentation with estimated gestational age of 31 weeks, 6 days based on LMP. Intrauterine growth restriction with estimated weight less than 3rd percentile. All biometry parameters are at less than 10th percentile, as detailed above. Normal umbilical artery Doppler with S/D of 3.3. Biophysical profile score of 8/8. Dictated by Kaylin Dietz MD @ 10/17/2024 9:48:03 AM (Electronically Signed)
== END 2024-10-17 08:02 | disposition home or self-care (01) ==
LOC: US 08:01
PROVIDERS: PCP Family Medicine; Visit Provider Advanced Practice Midwife
DX: O36.5930 Maternal care for other known or suspected poor fetal growth, third trimester, not applicable or unspecified (principal); Z3A.31 31 weeks gestation of pregnancy
CPT/HCPCS: 76816; 76819; 76820

== ENCOUNTER 2024-10-20 20:31 | Emergency (ER) | payer BC, SELFPAY ==
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
[2024-10-20 21:08] VITALS: BP 114/71; PULSE 96; RESP 16; TEMP 36.3; O2SAT 98; BMI 26.6
--- NOTE | 2024-10-20 21:37 | ED.GENADULT ---
HPI - General Adult General Chief complaint: Shoulder Injury/Pain Stated complaint: Fell yesterday, L shoulder pain Time Seen by Provider: 10/20/24 21:30 Source: patient Mode of arrival: ambulatory Limitations: no limitations History of Present Illness HPI narrative: 29-year-old female, 32 weeks , comes in today complaining of left shoulder pain. She states that yesterday she was removing a post from the ground when the post snapped. Once the post snapped she felt her left shoulder popped out of place and she fell to the ground. Once she hit the ground, she fell onto the left shoulder and the left shoulder popped back in. She now has discomfort with range of motion. If she is sitting still she does not have any pain. She denies other injury. Did not hit her head or lose consciousness. Did not he have any abdominal pain or cramping afterwards. No vaginal discharge or bleeding. Baby is moving like normal. Related Data Home Medications ?Medication ?Instructions ?Recorded ?Confirmed docosahexaenoic acid 200 mg 200 mg PO DAILY 08/27/22 10/20/24 capsule ( DHA) cholecalciferol (vitamin D3) 25 50 mcg PO QDAY 12/16/22 10/20/24 mcg (1,000 unit) capsule docusate sodium 100 mg capsule 100 mg PO QDAY PRN 10/17/24 10/20/24 (Colace) ferrous sulfate 325 mg (65 mg 325 mg PO QDAY 10/17/24 10/20/24 iron) tablet (Feosol) Previous Rx's ?Medication ?Instructions ?Recorded ondansetron HCl 4 mg tablet 4 mg PO Q6H PRN nausea and 05/11/24 vomiting #30 tabs metoclopramide HCl 10 mg tablet 10 mg PO Q6H PRN headache #30 tabs 08/10/24 (Reglan) Allergies Allergy/AdvReac Type Severity Reaction Status Date / Time Penicillins Allergy Intermediate Rash Verified 10/20/24 21:15 Review of Systems Status of ROS: Reports: 10 or more systems reviewed and unremarkable except as noted in History and below [facility] Medical History History of prior with IUGR ?Z87.59 - Personal history of other complications of , childbirth and the puerperium (ICD-10) Normal spontaneous vaginal delivery ?O80 - Encounter for full-term uncomplicated delivery (ICD-10) Surgical History Hx of appendectomy ?Z90.49 - Acquired absence of other specified parts of digestive tract (ICD-10) Family History Paternal Grandfather Prostate cancer Other Breast cancer Social History Narrative: SOCIAL? ? Education: some college? ? 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 ? ? Partner: Calvin ? Lives with: Calvin, two sons, step daughter 50% of the time? Pets: chickens, cats, cows. ? ? Abuse: Denies past Safe at home with current partner ? ? Special Diet: Denies? ? Ok with a blood transfusion: yes? ? Culture or samaritan beliefs: denies? RISK FACTORS? ? Exercise Times/wk: Working, daily chores? ? Depression/Anxiety: anxiety? ? Previous Treatments Taking lexapro. Therapy: denies Seat Belt Use: Routinely ? Smoking: Denies past/present? ?Smoked about 5 years, 1 pack per day Alcohol/day: Denies while ? ? Caffeine: Coffee and maybe a pop ? Drug Use: Denies past/present? ? MRSA: no history Chicken pox: as a child What is your current living situation?: I presently have a place to live Problems where you live: mold, water leaks and no known problems In the past 12 months, utilities in danger of being shut off: no In past 12 months, lack of transportation kept you from medical appts, meetings, work, or getting things needed for daily living: no In the past 12 mos, have been you worried that your food would run out before you had money to buy more?: never true In the past 12 mos, the food you bought just didn't last and you didn't have money to buy more?: never true Smoking Status: Former smoker How often do you have a drink containing alcohol: never AUDIT-C Alcohol total score: 0 Non-prescribed substance use: denies use How often does anyone, including family, friends and others, physically hurt you: never How often does anyone, including family, friends and others, insult or talk down to you: never How often does anyone, including family, friends and others, threaten you with harm: never How often does anyone, including family, friends and others, scream or curse at you: never Health Related Social Needs: Inadequate housing (Z59.1) Exam Narrative: Exam Narrative: Well-nourished well-developed patient in no acute distress. Alert and oriented. Answers questions appropriately. Mood and affect are appropriate. Thoughts are goal oriented and rational. No tangential or magical thinking noted. Patient speaks in full sentences without needing to catch her breath. HEENT: Normocephalic atraumatic. Pupils are equally round reactive to light. Extraocular muscles are intact. Conjunctivae are moist without any icterus noted. Moist mucous membranes. Neck is soft without lymphadenopathy. No cervical spine tenderness. Full range of motion of the cervical spine without discomfort. No tenderness to palpation over the anterior, lateral or posterior chest wall. His Abdomen: Gravid. A bowel sounds. Extremities: Shoulder has normal appearance. There is no significant swelling noted. No bruising. She does not have any acute bony tenderness. She does have full range of motion however when she reaches full range of extension above her head she does feel apprehension that her shoulder my pop out again. Skin: Well perfused. Const: Vital Signs, click to edit/add: Vital Signs - 24 hr 10/20/24 21:08 Temperature 97.4 F L Pulse Rate [Pulse Oximeter] 96 Respiratory Rate 16 Blood Pressure [Ri ght Upper Arm] 114/71 Pulse Oximetry 98 Oxygen Delivery Me thod Room Air Course Vital Signs Vital signs: Initial Vital Signs Temperature 97.4 F L 10/20/24 21:08 Temperature Source Temporal Artery Scan 10/20/24 21:08 Pulse Rate 96 10/20/24 21:08 Pulse Rhythm Regular 10/20/24 21:08 Respiratory Rate 16 10/20/24 21:08 Blood Pressure 114/71 10/20/24 21:08 Blood Pressure Mean 85 10/20/24 21:08 Pulse Oximetry 98 10/20/24 21:08 Oxygen Delivery Method Room Air 10/20/24 21:08 Vital Signs Temperature 97.4 F L 10/20/24 21:08 Pulse Rate 96 10/20/24 21:08 Respiratory Rate 16 10/20/24 21:08 Blood Pressure 114/71 10/20/24 21:08 Pulse Oximetry 98 10/20/24 21:08 Oxygen Delivery Method Room Air 10/20/24 21:08 Temperature 97.4 F L 10/20/24 21:08 Pulse Rate 96 10/20/24 21:08 Respiratory Rate 16 10/20/24 21:08 Blood Pressure 114/71 10/20/24 21:08 Pulse Oximetry 98 10/20/24 21:08 Oxygen Delivery Method Room Air 10/20/24 21:08 Medical Decision Making MDM Narrative Medical decision making narrative: 29-year-old female status post probable shoulder dislocation and spontaneous reduction. We discussed imaging today and decided not to proceed with any imaging at this time given her . We will put her in a shoulder immobilizer and have her follow-up with orthopedics next week. Discharge Plan Discharge Clinical Impression: Acute shoulder pain Patient Disposition: Home, Self-Care Condition: Stable Additional Instructions: Wear shoulder immobilizer at all times. Follow up with Orthopedics this week. Call them on Tuesday morning, phone number will be provided to you. Tell them you need to have a ER follow-up visit this week. Prescriptions: No Action DHA 200 mg capsule 200 mg PO DAILY cholecalciferol (vitamin D3) 25 mcg (1,000 unit) capsule 50 mcg PO QDAY ondansetron HCl 4 mg tablet 4 mg PO Q6H PRN (Reason: nausea and vomiting) Qty: 30 3RF docusate sodium [Colace] 100 mg capsule 100 mg PO QDAY PRN ferrous sulfate [Feosol] 325 mg (65 mg iron) tablet 325 mg PO QDAY metoclopramide HCl [Reglan] 10 mg tablet 10 mg PO Q6H PRN (Reason: headache) Qty: 30 0RF Follow Up/Referrals: Jaya Patricia MD [Primary Care Provider] - Stand Alone Forms: RoomClip Info Instructions
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
== END 2024-10-20 22:07 | disposition home or self-care (01) ==
PROVIDERS: Emergency Provider Family Medicine; PCP Family Medicine
DX: M25.512 Pain in left shoulder (principal)
CPT/HCPCS: 99283

== ENCOUNTER 2024-10-24 07:09 | Outpatient (CLI) | payer BC, SELFPAY ==
--- NOTE | 2024-10-24 07:15 | CRLHL7_ITS ---
For Patients: As a result of the Cures Act, medical imaging exams and procedure reports are released immediately into your electronic medical record. You may view this report before your referring provider. If you have questions, please contact your health care provider. OB ULTRASOUND VISHAL by LMP or US: 12/13/2024. GA: 32 w, 6 d. Single. Comparison: 10/17/2024, 08/21/2024, 07/23/2024. INDICATION: Severe IUGR. TECHNIQUE: Real time grayscale imaging of the fetus was performed. Transabdominal. CERVIX: Not visualized. POSITIONING: Breech. AMNIOTIC FLUID: 6.0 cm. SDP (N: greater than 2 x 1 cm) PLACENTA: Technique: Transabdominal. PLACENTA POSITION: Posterior. DOPPLER: heart rate: 138 bpm. Umbilical artery: 2.3-2.7 S/D. 28-34 w = less than 4.0. IMPRESSION: Duplex Doppler ultrasound evaluation of the umbilical artery performed. Umbilical artery S/D ratio 2.3-2.7. Jaya Parra M.D. Diagnostic Radiologist [email or web address] SHAY/caron reardon/Dictated by: Jaya Parra MD @ 10/24/2024 8:28:00 AM (Electronically Signed)
== END 2024-10-24 07:10 | disposition home or self-care (01) ==
LOC: US 07:09
PROVIDERS: PCP Family Medicine; Visit Provider Advanced Practice Midwife
DX: O36.5930 Maternal care for other known or suspected poor fetal growth, third trimester, not applicable or unspecified (principal); O26.13 Low weight gain in pregnancy, third trimester; Z3A.32 32 weeks gestation of pregnancy
CPT/HCPCS: 76815; 76820

== ENCOUNTER 2024-11-01 07:10 | Outpatient (CLI) | payer BC, SELFPAY ==
--- NOTE | 2024-11-01 07:15 | CRLHL7_ITS ---
For Patients: As a result of the Cures Act, medical imaging exams and procedure reports are released immediately into your electronic medical record. You may view this report before your referring provider. If you have questions, please contact your health care provider. OB ULTRASOUND LMP: 03/08/2025. VISHAL by LMP: 12/13/2024. GA: 34 w, 0 d. Single. Comparison: 10/24/2024, 10/17/2024, 08/21/2024. INDICATION: Severe IUGR. TECHNIQUE: Real time grayscale imaging of the fetus was performed. Transabdominal. CERVIX: Not visualized. POSITIONING: Vertex. AMNIOTIC FLUID: 6.0 cm. SDP (N: greater than 2 x 1 cm) PLACENTA: Technique: Transabdominal. PLACENTA POSITION: Posterior. DOPPLER: heart rate: 133 bpm. Umbilical artery: 2.9 S/D. 28-34 w = less than 4.0. IMPRESSION: Spectral Doppler evaluation of the umbilical artery performed. Umbilical artery S/D ratio 2.9. Jaya Parra M.D. Diagnostic Radiologist [email or web address] SHAY/caron reardon/Dictated by: Jaya Parra MD @ 11/01/2024 9:09:00 AM (Electronically Signed)
== END 2024-11-01 07:11 | disposition home or self-care (01) ==
LOC: US 07:10
PROVIDERS: PCP Family Medicine; Visit Provider Advanced Practice Midwife
DX: O36.5930 Maternal care for other known or suspected poor fetal growth, third trimester, not applicable or unspecified (principal); Z3A.34 34 weeks gestation of pregnancy
CPT/HCPCS: 76815; 76820

== ENCOUNTER 2024-11-01 08:35 | Outpatient (CLI) | payer BC, SELFPAY | END 2024-11-01 08:36 | disposition home or self-care (01) | LOC: NFLDREF 11-04 11:03 | PROVIDERS: PCP Family Medicine; Referring Provider Family Medicine; Visit Provider Advanced Practice Midwife | DX: Z34.83 Encounter for supervision of other normal pregnancy, third trimester (principal); N89.8 Other specified noninflammatory disorders of vagina | CPT/HCPCS: 87081; 87653 ==

== ENCOUNTER 2024-11-03 18:21 | Emergency (ER) | payer BC, SELFPAY ==
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
[2024-11-03 18:27] VITALS: BP 124/71; PULSE 110; RESP 18; TEMP 37; O2SAT 96; BMI 26.0
--- NOTE | 2024-11-03 19:14 | ED_ITS ---
HPI - Nausea/Vomiting/Diarrhea General Chief complaint: Diarrhea Stated complaint: 34 wks preg/diarrhea Time Seen by Provider: 11/03/24 18:27 History of Present Illness HPI Narrative: This 29-year-old female comes in reporting diarrhea over the past 2 or 3 days. She is 34 weeks and has been having weekly ultrasounds because of intrauterine growth restriction. This is her 3rd . She does not report any fevers. She has not had any nausea or vomiting. She does report a little bit of blood tinging the diarrhea at times and thinks that this might be from a hemorrhoid. Related Data Home Medications ?Medication ?Instructions ?Recorded ?Confirmed docosahexaenoic acid 200 mg 200 mg PO DAILY 08/27/22 11/01/24 capsule ( DHA) cholecalciferol (vitamin D3) 25 50 mcg PO QDAY 12/16/22 11/01/24 mcg (1,000 unit) capsule ferrous sulfate 325 mg (65 mg 325 mg PO QDAY 10/17/24 11/01/24 iron) tablet (Feosol) Previous Rx's ?Medication ?Instructions ?Recorded ondansetron HCl 4 mg tablet 4 mg PO Q6H PRN nausea and 05/11/24 vomiting #30 tabs metoclopramide HCl 10 mg tablet 10 mg PO Q6H PRN headache #30 tabs 08/10/24 (Reglan) docusate sodium 100 mg capsule 100 mg PO QDAY PRN constipation 11/01/24 (Colace) #30 caps Allergies Allergy/AdvReac Type Severity Reaction Status Date / Time Penicillins Allergy Intermediate Rash Verified 11/01/24 08:08 Review of Systems Status of ROS: Reports: 10 or more systems reviewed and unremarkable except as noted in History and below Narrative: Constitutional: No fevers, no weight gain or loss. Eyes: No discharge. No vision changes. HENT: No congestion, no sore throat, no ear pain. Cardiovascular: No chest pain, no palpitations. Respiratory: No shortness of breath, no wheezes, no cough. Gastrointestinal: No abdominal pain, no vomiting. Diarrhea as described above. Genitourinary: No dysuria, no hematuria. Musculoskeletal: Normal range of motion. Skin: No rashes, no pruritis. Neurological: No dizziness, weakness, sensory change, speech change. Endo/Heme/Allergies: No bruising or bleeding. No polydipsia. Pysch: no suicidality, no anxiety, no insomnia. All other systems reviewed and are negative. [facility] Medical History (Updated 11/03/24 @ 20:46 by Kareem Guerrero MD) Depression ?F32.A - Depression, unspecified (ICD-10) History of prior with IUGR ?Z87.59 - Personal history of other complications of , childbirth and the puerperium (ICD-10) Normal spontaneous vaginal delivery ?O80 - Encounter for full-term uncomplicated delivery (ICD-10) Surgical History Hx of appendectomy ?Z90.49 - Acquired absence of other specified parts of digestive tract (ICD- 10) Family History Paternal Grandfather Prostate cancer Other Breast cancer Social History Narrative: SOCIAL? ? Education: some college? ? 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 ? ? Partner: Calvin ? Lives with: Calvin, two sons, step daughter 50% of the time? Pets: chickens, cats, cows. ? ? Abuse: Denies past Safe at home with current partner ? ? Special Diet: Denies? ? Ok with a blood transfusion: yes? ? Culture or lutheran beliefs: denies? RISK FACTORS? ? Exercise Times/wk: Working, daily chores? ? Depression/Anxiety: anxiety? ? Previous Treatments Taking lexapro. Therapy: denies Seat Belt Use: Routinely ? Smoking: Denies past/present? ?Smoked about 5 years, 1 pack per day Alcohol/day: Denies while ? ? Caffeine: Coffee and maybe a pop ? Drug Use: Denies past/present? ? MRSA: no history Chicken pox: as a child What is your current living situation?: I presently have a place to live Problems where you live: mold, water leaks and no known problems In the past 12 months, utilities in danger of being shut off: no In past 12 months, lack of transportation kept you from medical appts, meetings, work, or getting things needed for daily living: no In the past 12 mos, have been you worried that your food would run out before you had money to buy more?: never true In the past 12 mos, the food you bought just didn't last and you didn't have money to buy more?: never true Smoking Status: Former smoker Do you use any of these nicotine containing products: None Second hand tobacco smoke exposure: No How often do you have a drink containing alcohol: never AUDIT-C Alcohol total score: 0 Non-prescribed substance use: denies use How often does anyone, including family, friends and others, physically hurt you : never How often does anyone, including family, friends and others, insult or talk down to you: never How often does anyone, including family, friends and others, threaten you with harm: never How often does anyone, including family, friends and others, scream or curse at you: never Health Related Social Needs: Inadequate housing (Z59.1) Exam Narrative: Exam Narrative: Constitutional: Well-developed, well-nourished, no acute distress. HEENT: Normocephalic, atraumatic. Neck: Normal range of motion. Nontender. Supple. Heart: Regular. No murmurs. Normal rate. Intact distal pulses. Lungs: Clear to auscultation. No chest discomfort. No wheezes, rhonchi, or rales. Abdomen: Gravid at approximately 34 weeks gestation. Genitalia: Deferred. Back: No midline tenderness. Normal range of motion. Extremities: Normal range of motion. No injury. Skin: Intact. No rash. Warm. No erythema or pallor. Neurologic: No altered sensation. No weakness. Alert and oriented. Psychiatric: No suicidality. No anxiety or depression. No insomnia. Nursing notes and vitals signs are reviewed. Const: Vital Signs, click to edit/add: Vital Signs - 24 hr 11/03/24 18:27 Temperature 98.6 F Pulse Rate [Pulse Oximeter] 110 H Respiratory Rate 18 Blood Pressure [Ri ght Upper Arm] 124/71 Pulse Oximetry 96 Oxygen Delivery Me thod Room Air Course Vital Signs Vital signs: Initial Vital Signs Temperature 98.6 F 11/03/24 18:27 Temperature Source Temporal Artery Scan 11/03/24 18:27 Pulse Rate 110 H 11/03/24 18:27 Respiratory Rate 18 11/03/24 18:27 Blood Pressure 124/71 11/03/24 18:27 Blood Pressure Mean 88 11/03/24 18:27 Pulse Oximetry 96 11/03/24 18:27 Oxygen Delivery Method Room Air 11/03/24 18:27 Vital Signs Temperature 98.6 F 11/03/24 18:27 Pulse Rate 110 H 11/03/24 18:27 Respiratory Rate 18 11/03/24 18:27 Blood Pressure 124/71 11/03/24 18:27 Pulse Oximetry 96 11/03/24 18:27 Oxygen Delivery Method Room Air 11/03/24 18:27 Temperature 98.6 F 11/03/24 18:27 Pulse Rate 110 H 11/03/24 18:27 Respiratory Rate 18 11/03/24 18:27 Blood Pressure 124/71 11/03/24 18:27 Pulse Oximetry 96 11/03/24 18:27 Oxygen Delivery Method Room Air 11/03/24 18:27 Medications Administered Medications: Discontinued Medications Generic Name Dose Route Start Last Admin Trade Name Freq PRN Reason Stop Dose Admin Sodium Chloride 1,000 mls @ 1,000 mls/hr 11/03/24 19:15 11/03/24 20:17 0.9 % Sodium Chloride 1000 Ml IV 11/03/24 20:14 Infused .Q1H [facility] Infusion MDM - Nausea/Vomiting/Diarrhea MDM Narrative Medical decision making narrative: This patient comes in at 34 weeks gestation reporting diarrhea for the past few days. She does arrive with normal vital signs. She is concerned about her baby of course and reports and evidence of growth restriction and possibly decreased amniotic fluid. She has been getting weekly ultrasounds to assess her progress. An IV was established where she received a L of normal saline. Lab results including metabolic panel and complete blood count along with urinalysis all returned with normal results. OB nurse was here to assess the baby and did a check of her cervix which is at about 1 cm dilation. Everything is reassuring here and the patient is okay to return home to continue current plans. Lab Data Labs: Lab Results 11/03/24 11/03/24 Range/Units 19:17 19:30 WBC 11.52 H (4.50-11.00) K/uL RBC 3.74 L (4.00-5.20) m/uL Hgb 11.1 L (12.0-16.0) gm/dL Hct 33.3 (33.0-51.0) % MCV 89 (80-100) fL MCH 30 (26-34) pg MCHC 33 (32-36) gm/dL RDW Coeff of Keke 12.6 (11.5-15.5) % Plt Count 203 (140-440) K/uL Neut % (Auto) 81.4 H (42.0-72.0) % Lymph % (Auto) 9.0 L (20-44) % [place] % (Auto) 7.5 (0.0-11.0) % Eos % (Auto) 1.6 (0.0-7.0) % Baso % (Auto) 0.2 (0.0-3.0) % Neut # (Auto) 9.40 H (1.7-7.0) K/uL Lymph # (Auto) 1.00 (0.90-2.90) K/uL [place] # (Auto) 0.90 (0.00-0.90) K/UL Eos # (Auto) 0.20 (0.00-0.50) K/uL Baso # (Auto) 0.00 (0.00-0.30) K/uL Abs Immat Gran (auto) 0.00 (0.00-0.30) K/uL Imm/Tot Granulo (auto) 0.3 % Sodium 133 L (135-149) mmol/L Potassium 3.5 L (3.6-5.1) mmol/L Chloride 105 (96-114) mmol/L Carbon Dioxide 24 (20-32) mmol/L Anion Gap 4 L (7-15) mEq/L BUN 5 (5-24) mg/dL Creatinine 0.6 (0.5-1.5) mg/dL Estimated Creat Clear 116.51 Estimated GFR 126 ml/min Glucose 81 (60-115) mg/dL Calcium 8.5 (8.4-10.6) mg/dL Urine Color Yellow (Yellow) Urine Appearance Clear (Clear) Urine pH 6.0 (5.0-8.5) Ur Specific [place] 1.025 (1.000-1.030) Urine Protein Negative (Negative) Urine Glucose (UA) Trace A (Negative) Urine Ketones Trace A (Negative) Urine Blood Negative (Negative) Urine Nitrite Negative (Negative) Urine Bilirubin Negative (Negative) Urine Urobilinogen 0.2 (0.2-1.0) Ur Leukocyte Esterase Negative (Negative) Urine RBC 0-2 (0-2) Urine WBC 0-2 (0-5) Ur Squamous Epith Cells None (None-Few) Urine Bacteria None (None) Discharge Plan Discharge Clinical Impression: Diarrhea, Patient Disposition: Home, Self-Care Condition: Stable Additional Instructions: Continue with fluids and return to normal diet as able. Follow up with OB Clinic as scheduled and needed. Return if worsening. Prescriptions: No Action DHA 200 mg capsule 200 mg PO DAILY cholecalciferol (vitamin D3) 25 mcg (1,000 unit) capsule 50 mcg PO QDAY ondansetron HCl 4 mg tablet 4 mg PO Q6H PRN (Reason: nausea and vomiting) Qty: 30 3RF ferrous sulfate [Feosol] 325 mg (65 mg iron) tablet 325 mg PO QDAY metoclopramide HCl [Reglan] 10 mg tablet 10 mg PO Q6H PRN (Reason: headache) Qty: 30 0RF docusate sodium [Colace] 100 mg capsule 100 mg PO QDAY PRN (Reason: constipation) Qty: 30 2RF Follow Up/Referrals: Jaya Patricia MD [Primary Care Provider] - Stand Alone Forms: Style on Screen Info Instructions
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
[2024-11-03 19:31] LABS: Appearance Urine Clear (Clear); Bilirubin Urine Negative (Negative); Blood Urine Negative (Negative); Color Urine Yellow (Yellow); Glucose Urine Trace (Negative); Ketones Urine Trace (Negative); Leukocyte Esterase Urine Negative (Negative); Nitrite Urine Negative (Negative); Protein Urine Negative (Negative); Specific Gravity Urine 1.025 (1.000-1.030); Urobilinogen Urine 0.2 (0.2-1.0)
[2024-11-03 19:40] LABS: Basophils Percent Auto 0.2 % (0.0-3.0); Eosinophils Percent Auto 1.6 % (0.0-7.0); Hematocrit 33.3 % (33.0-51.0); Hemoglobin* 11.1 gm/dL (12.0-16.0); Immature Granulocytes Pct Auto 0.3 %; Mean Corpuscular HGB Conc 33 gm/dL (32-36); Mean Corpuscular Hemoglobin 30 pg (26-34); Mean Corpuscular Volume 89 fL (80-100); Monocytes Percent Auto 7.5 % (0.0-11.0); Neutrophils Percent Auto 81.4 % (42.0-72.0); Platelet Count* 203 K/uL (140-440); RDW Coefficient of Variation % 12.6 % (11.5-15.5); Red Blood Count 3.74 m/uL (4.00-5.20); White Blood Count* 11.52 K/uL (4.50-11.00)
[2024-11-03] MEDS: 0.9 % SODIUM CHLORIDE 1000 ml 1,000 ML IV (19:41)
[2024-11-03 19:42] LABS: RBC Urine 0-2 (0-2); WBC Urine 0-2 (0-5)
[2024-11-03 19:43] LABS: Slide Review Reflex No
[2024-11-03 19:54] LABS: Chloride* 105 mmol/L (96-114)
[2024-11-03 19:55] LABS: Potassium* 3.5 mmol/L (3.6-5.1); Sodium* 133 mmol/L (135-149)
[2024-11-03 19:57] LABS: Blood Urea Nitrogen* 5 mg/dL (5-24); Creatinine* 0.6 mg/dL (0.5-1.5); Est. Creatinine Clearance* 116.51; Estimated Glomerular Filt Rate 126 ml/min
[2024-11-03 19:58] LABS: Anion Gap 4 mEq/L (7-15); Calcium* 8.5 mg/dL (8.4-10.6); Carbon Dioxide* 24 mmol/L (20-32); Glucose* 81 mg/dL (60-115)
[2024-11-03 20:59] VITALS: BP 106/60; PULSE 76; RESP 16; TEMP 36.7
--- NOTE | 2024-11-03 22:32 | PC.OBNST ---
NST Note NST Note Start: 11/03/24 20:28 Freq: ONCE Status: Discharge Protocol: Document 11/03/24 20:28 TUSHARRAYMOND (Rec: 11/03/24 20:31 MANI [id number]) NST Note 3 Para (# of births) 2 EDC 12/13/24 Gestational Age In Weeks & Days 34 Weeks & 2 Days Patient Presented with Complaint(s) of Other Other Complaints Patient came to the emergency department tonight for diarrhea that has persisted the last three days. Patient reports cramping and contractions, but mostly when she has the urge to use the bathroom. She states they have been nothing consistent Reactive Yes Appropriate for Gestational Age Yes ELIZABETH Rosario RNC Date 11/03/24 Reactive Yes Appropriate for Gestational Age Yes ELIZABETH Jensen RN Date 11/03/24 OB NST charge Yes Complete NST Note via Write Note Yes The provider's electronic signature indicates the NST is reactive/appropriate for gestational age. *Note to provider: If an addendum is required, open the patient's chart and click on the note under the Nurse/Allied Health tab.
== END 2024-11-03 21:00 | disposition home or self-care (01) ==
PROVIDERS: Emergency Provider Emergency Medicine Emergency Medical Services; PCP Family Medicine
DX: R19.7 Diarrhea, unspecified (principal); Z3A.34 34 weeks gestation of pregnancy
CPT/HCPCS: 36415; 59025; 80048; 81001; 85025; 99283; 99284; J7030

== ENCOUNTER 2024-11-05 08:28 | Outpatient (CLI) | payer BC, SELFPAY ==
[2024-11-05] VITALS (18 sets, daily range): BP systolic 100–121; BP diastolic 62–70; PULSE 94–116; RESP 16; TEMP 36.6–36.8; O2SAT 96–100
--- NOTE | 2024-11-05 09:43 | P.OBLDTN_ITS ---
OB - Triage/Final Diagnosis Visit Information Date Seen: 11/05/24 Date of evaluation: 11/05/24 Narrative: Kaci is a 29 year old 3 para 2 at 34.4 weeks gestation by LMP, who presents with approximately 4 days of diarrhea which has progressed to bloody diarrhea which started as off and on on 11/03/24. She reports since last night she has now had blood in her stools every time she goes. She has a hoarse voice today but only reports a sore throat which she states just feels dry. On arrival she also reports occasional contractions but cannot differentiate them from abdominal cramping. A hat was placed in the toilet and a stool sample was collected which appeared to be mostly bloody fluid with a small amount of stool. Stool was sent for culture and C.Diff, CBC and CMP were ordered. IV fluid started, swabs for Flu, Covid and Strep along with GBS swab done. A speculum exam showed normal appearing discharge clear/white and no evidence of blood from the vagina. She denies any urinary symptoms today. Cervical exam was 1cm, thick and posterior. Contractions on EFM are 6-7 minutes apart, Category I. Her OB history includes severe IUGR <3%, follow up with MFM is scheduled for 11/07/24 for repeat growth. Consulted with Dr. Haddad who is now assuming care. 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
[2024-11-05] MEDS: LACTATED RINGERS 1000 ML 1,000 ML IV (09:58)
[2024-11-05 10:05] LABS: Basophils Absolute Auto 0.02 K/uL (0.00-0.30); Basophils Percent Auto 0.2 % (0.0-3.0); Eosinophils Absolute Auto 0.19 K/uL (0.00-0.50); Eosinophils Percent Auto 1.9 % (0.0-7.0); Hematocrit 33.1 % (33.0-51.0); Hemoglobin* 10.9 gm/dL (12.0-16.0); Immature Granulocytes Abs Auto 0.02 K/uL (0.00-0.30); Immature Granulocytes Pct Auto 0.2 %; Lymphocytes Percent Auto 11.5 % (20-44); Mean Corpuscular HGB Conc 33 gm/dL (32-36); Mean Corpuscular Hemoglobin 29 pg (26-34); Mean Corpuscular Volume 89 fL (80-100); Monocytes Percent Auto 9.2 % (0.0-11.0); Platelet Count* 203 K/uL (140-440); RDW Coefficient of Variation % 12.7 % (11.5-15.5); Red Blood Count 3.73 m/uL (4.00-5.20); White Blood Count* 9.92 K/uL (4.50-11.00)
[2024-11-05 10:10] LABS: Slide Review Reflex No
[2024-11-05 10:11] LABS: Fecal Occult Blood* Positive (Negative)
[2024-11-05 10:21] LABS: Albumin* 3.2 g/dL (3.3-5.0); Chloride* 107 mmol/L (96-114); Potassium* 3.7 mmol/L (3.6-5.1); Sodium* 135 mmol/L (135-149)
[2024-11-05 10:21] LABS: Strep A DNA Probe* NOT DETECTED (Not Detectd)
[2024-11-05 10:24] LABS: Alanine Aminotransferase* 17 U/L (4-35); Alkaline Phosphatase* 134 U/L (40-150); Anion Gap 7 mEq/L (7-15); Aspartate Amino Transferase* 27 U/L (12-35); Bilirubin Total* 0.5 mg/dL (0.1-1.5); Blood Urea Nitrogen* 3 mg/dL (5-24); Calcium* 8.2 mg/dL (8.4-10.6); Carbon Dioxide* 21 mmol/L (20-32); Creatinine* 0.6 mg/dL (0.5-1.5); Estimated Glomerular Filt Rate 126 ml/min; Glucose* 76 mg/dL (60-115)
[2024-11-05 10:33] LABS: PCR FLU A Negative PCR FLU A (Negative); PCR FLU B Negative PCR FLU B (Negative); SARS PCR* Negative SARS-CoV-2 (Negative)
[2024-11-05 10:49] LABS: C.Difficile Negative (Negative); CDIFFEPI 027 PRESUMPTIVE NEGATIVE (Negative)
[2024-11-05] MEDS: LACTATED RINGERS 1000 ML 1,000 ML 125 ML IV (10:58)
--- NOTE | 2024-11-05 11:26 | P.IMCN_ITS ---
Date of Consult Consult date: 11/05/24 Requesting Physician: [facility] Primary Care Provider: Jaya Patricia MD Consult Narrative Narrative: Consult was not completed. Pt transferred to [place] for PTL prior to me seeing and examining her. I however discussed the case with ID and ordered the PCR stool stat labs to [facility]. I ordered the azithromycin orally. Ultimately her PCR showed acute Campylobacter diarrhea infection. This information was passed along to the [place] OB team. [facility] Medical History (Updated 11/05/24 @ 11:50 by Guillermina Haddad MD) Depression ?F32.A - Depression, unspecified (ICD-10) History of prior with IUGR ?Z87.59 - Personal history of other complications of , childbirth and the puerperium (ICD-10) Normal spontaneous vaginal delivery ?O80 - Encounter for full-term uncomplicated delivery (ICD-10) Surgical History Hx of appendectomy ?Z90.49 - Acquired absence of other specified parts of digestive tract (ICD- 10) Family History Paternal Grandfather Prostate cancer Other Breast cancer Social History Narrative: SOCIAL? ? Education: some college? ? 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 ? ? Partner: Calvin ? Lives with: Calvin, two sons, step daughter 50% of the time? Pets: chickens, cats, cows. ? ? Abuse: Denies past Safe at home with current partner ? ? Special Diet: Denies? ? Ok with a blood transfusion: yes? ? Culture or jain beliefs: denies? RISK FACTORS? ? Exercise Times/wk: Working, daily chores? ? Depression/Anxiety: anxiety? ? Previous Treatments Taking lexapro. Therapy: denies Seat Belt Use: Routinely ? Smoking: Denies past/present? ?Smoked about 5 years, 1 pack per day Alcohol/day: Denies while ? ? Caffeine: Coffee and maybe a pop ? Drug Use: Denies past/present? ? MRSA: no history Chicken pox: as a child What is your current living situation?: I presently have a place to live Problems where you live: mold, water leaks and no known problems In the past 12 months, utilities in danger of being shut off: no In past 12 months, lack of transportation kept you from medical appts, meetings, work, or getting things needed for daily living: no In the past 12 mos, have been you worried that your food would run out before you had money to buy more?: never true In the past 12 mos, the food you bought just didn't last and you didn't have money to buy more?: never true Smoking Status: Former smoker Do you use any of these nicotine containing products: None Second hand tobacco smoke exposure: No How often do you have a drink containing alcohol: never AUDIT-C Alcohol total score: 0 Non-prescribed substance use: denies use How often does anyone, including family, friends and others, physically hurt you : never How often does anyone, including family, friends and others, insult or talk down to you: never How often does anyone, including family, friends and others, threaten you with harm: never How often does anyone, including family, friends and others, scream or curse at you: never Health Related Social Needs: Inadequate housing (Z59.1) Meds Home Medications and Allergies Home Medications ?Medication ?Instructions ?Recorded ?Confirmed ?Type docosahexaenoic acid 200 mg 200 mg PO DAILY 08/27/22 11/05/24 History capsule ( DHA) cholecalciferol (vitamin D3) 25 50 mcg PO QDAY 12/16/22 11/05/24 History mcg (1,000 unit) capsule ferrous sulfate 325 mg (65 mg 325 mg PO QDAY 10/17/24 11/05/24 History iron) tablet (Feosol) Allergies Allergy/AdvReac Type Severity Reaction Status Date / Time Penicillins Allergy Intermediate Rash Verified 11/01/24 08:08 Exam Const: Vital Signs, click to edit/add: Vital Signs - 24 hr 11/05/24 08:37 11/05/24 08:38 11/05/24 08:39 Temperature Pulse Rate 106 H 116 H Respiratory Rate Blood Pressure 107/70 107/70 Pulse Oximetry 96 11/05/24 08:44 11/05/24 08:49 11/05/24 08:54 Temperature Pulse Rate Respiratory Rate Blood Pressure Pulse Oximetry 98 97 96 11/05/24 08:59 11/05/24 09:04 11/05/24 09:09 Temperature Pulse Rate Respiratory Rate Blood Pressure Pulse Oximetry 96 98 97 11/05/24 09:14 11/05/24 09:19 11/05/24 10:51 Temperature Pulse Rate 112 H Respiratory Rate Blood Pressure 121/63 Pulse Oximetry 98 99 11/05/24 11:14 Temperature 98 F Pulse Rate Respiratory Rate 16 Blood Pressure Pulse Oximetry Labs Labs: Short CBC 11/05/24 Range/Units 09:55 WBC 9.92 (4.50-11.00) K/uL Hgb 10.9 L (12.0-16.0) gm/dL Hct 33.1 (33.0-51.0) % Plt Count 203 (140-440) K/uL BMP 11/05/24 09:55 Sodium 135 Potassium 3.7 Chloride 107 Carbon Dioxide 21 BUN 3 L Creatinine 0.6 Glucose 76 Calcium 8.2 L Liver Function 11/05/24 Range/Units 09:55 Total Bilirubin 0.5 (0.1-1.5) mg/dL AST 27 (12-35) U/L ALT 17 (4-35) U/L Alkaline Phosphatase 134 (40-150) U/L Albumin 3.2 L (3.3-5.0) g/dL
--- NOTE | 2024-11-05 11:31 | PM.OBHPAP1 ---
OB - H&P; HPI Antepartum History of Present Illness Date Seen: 11/05/24 Chief complaint: contractions Narrative: Hernandez is a 29 year old -0-0-2 woman at 34 4/7 weeks' gestation who presents with chief complaint of contractions and bloody diarrhea. She developed a sore throat night, accompanied by coughing. She also developed diarrhea on that has been persistent since that time. Initially, diarrhea was intermittently bloody, containing bright-red blood. It has become progressively more bloody since , and is now bloody with each episode. She is having this watery, bloody diarrhea 12+ times / 24 hours. She reports body aches. Today, she has developed regular contractions as well. She denies fever. Denies vomiting. She is tolerating oral intake, but all fluid intake comes right out In diarrhea. Her 4 yo son has also developed diarrhea, as of yesterday. He has had 2 episodes of bloody stools. He did have a fever, but this has resolved. Past medical, surgical, family and social histories reviewed and updated in EHR Specific Issues/Plans 2 boys at home. This is a girl! #Intrauterine Growth Restriction; ? EFW <3% with normal UA doppler *Dating by LMP at 9.1 weeks, 1st OB US off 7 days, LMP was kept for dating Discussed with Dr. Avalos 10/17 who recommends keeping dates and encouraged MFM consult Offered MFM consult: declined, after reviewing again she is willing to do growth with MFM in 3 weeks UA doppler weekly and NST weekly: testing form completed Growth US every 3 weeks: Recommended Delivery recommended at 37 weeks, if remains severe will need to consult/collaborate or transfer to MD; Pt strongly desires to remain with CNM team? # Hx of IUGR with 1st (dx at 30 weeks) Consider growth u/s at 32 weeks EFW at Anatomy US: 13%ile, discussed earlier vs 32 weeks # Closely spaced on 07/18/2023 # Hx of depression/Anxiety On Lexapro last , stopped in September of this year, doing well # Chronic low back pain Injured back at work in previous . # Migraines, only twice this Reglan sent 08/10 # Anemia at 28 weeks, hgb 10.8 Recommend iron supplement MWF # Breech at 32 weeks, spontaneously resolved # Low weight gain at 32 weeks Recommended increased intake, high protein diet Ultrasound: 05/11/2024: 8 weeks, 1 day by CRL with sonographic VISHAL 12/20/2024. She was 9 1/7 weeks' by LMP. Dating chosen was that by LMP 7 days discrepant from this US. 07/23/2024: Posterior placenta without previa, normal fluid, visualized anatomy was normal. Heart and ventricular outflow tracts suboptimally visualized due to lie. EFW 13%, AC 19%, BPD 4%, HC 3%, FL 32%. 08/21/2024: Normal heart views. Normal fluid. Normal cord insertion into the placenta. 10/17/2024: EFW 1451 g, less than 3%. AC 8.7%, BPD 3.1%, HC 3.1%, FL less than 3%. Normal fluid, normal UA Doppler. Normal Dopplers on 10/24/2024 and 11/01/2024. Cephalic lie on November 01, SDP 6.0. COVID: declined Flu: 05/01/2024 TDAP: 09/17/2024 RSV: N/A 32wk Mental Health: Meds Home Medications and Allergies Home Medications ?Medication ?Instructions ?Recorded ?Confirmed ?Type docosahexaenoic acid 200 mg 200 mg PO DAILY 08/27/22 11/05/24 History capsule ( DHA) cholecalciferol (vitamin D3) 25 50 mcg PO QDAY 12/16/22 11/05/24 History mcg (1,000 unit) capsule ferrous sulfate 325 mg (65 mg 325 mg PO QDAY 10/17/24 11/05/24 History iron) tablet (Feosol) Allergies Allergy/AdvReac Type Severity Reaction Status Date / Time Penicillins Allergy Intermediate Rash Verified 11/01/24 08:08 OB - H&P: Exam Physical Exam: Vital signs: Temp Pulse Resp BP Pulse Ox 98 F 112 H 16 121/63 99 11/05/24 11:14 11/05/24 10:51 11/05/24 11:14 11/05/24 10:51 11/05/24 09:19 tracing: baseline 130 / accelerations present / no decelerations / moderate variability Contractions Q 2-5 minutes Narrative: Physical exam: General: No acute distress Psych: Alert and oriented x3, full affect HEENT: Normocephalic, atraumatic Neck: No cervical adenopathy, no thyromegaly Heart: Regular rate and rhythm, no murmur rub or gallop Lungs: Clear to auscultation bilaterally Abdomen: Soft, nontender, gravid, cephalic lie Lower extremities: No edema or erythema Pelvic exam: per CNM, no blood in vaginal vault, no hemorrhoids OB - Results Labs Labs: Short CBC 11/05/24 Range/Units 09:55 WBC 9.92 (4.50-11.00) K/uL Hgb 10.9 L (12.0-16.0) gm/dL Hct 33.1 (33.0-51.0) % Plt Count 203 (140-440) K/uL BMP 11/05/24 09:55 Sodium 135 Potassium 3.7 Chloride 107 Carbon Dioxide 21 BUN 3 L Creatinine 0.6 Glucose 76 Calcium 8.2 L Liver Function 11/05/24 Range/Units 09:55 Total Bilirubin 0.5 (0.1-1.5) mg/dL AST 27 (12-35) U/L ALT 17 (4-35) U/L Alkaline Phosphatase 134 (40-150) U/L Albumin 3.2 L (3.3-5.0) g/dL OB - A/P Antepartum Assessment and Plan (1) Diarrhea: Status: Acute Assessment and Plan: Stool sample is examined; it contains obvious dark red blood and flecks of mucus. Given persistent, abundant bloody diarrhea and contractions, will admit for observation. Consult hospitalist service for evaluation and treatment of bloody diarrhea. Will continue IV fluids at this time. Continuous monitoring. (2) Supervision of high risk in third trimester: Status: Acute (3) Intrauterine growth restriction (IUGR) affecting care of mother, third trimester, single gestation: Status: Acute (4) contractions: Status: Acute Assessment and Plan: If these become persistent despite IV hydration, I favor GBS testing and repeat cervical exam.
[2024-11-05] MEDS: AZITHROMYCIN 250 MG TABLET 1000 MG PO (12:34)
[2024-11-05 13:59] LABS: C.Difficile Negative (Negative); CDIFFEPI 027 PRESUMPTIVE NEGATIVE (Negative)
[2024-11-05] MEDS: CEFAZOLIN 1 GM inj IVP (14:05)
--- NOTE | 2024-11-05 15:53 | PC.OBNST ---
NST Note NST Note Start: 11/05/24 08:34 Freq: ONCE Status: Active Protocol: Document 11/05/24 14:25 JRS (Rec: 11/05/24 15:53 JRS [id number]) NST Note 3 Para (# of births) 2 EDC 12/13/24 Gestational Age In Weeks & Days 34 Weeks & 4 Days Patient Presented with Complaint(s) of Contractions/cramping,Other Other Complaints Diarrhea Reactive Yes Appropriate for Gestational Age Yes RN Bhumika Turner RN Date 11/05/24 Reactive Yes Appropriate for Gestational Age Yes ELIZABETH Mo RN Date 11/05/24 OB NST charge Yes Complete NST Note via Write Note Yes The provider's electronic signature indicates the NST is reactive/appropriate for gestational age. *Note to provider: If an addendum is required, open the patient's chart and click on the note under the Nurse/Allied Health tab.
[2024-11-06 09:06] LABS: Strep B DNA Probe Negative (Negative)
[2024-11-06 09:11] LABS: Strep B Susceptibility Needed? No
== END 2024-11-05 14:25 ==
LOC: OB OUT 08:29 → OB 08:30
PROVIDERS: Family Medicine; PCP Family Medicine; Visit Provider Advanced Practice Midwife
DX: O47.03 False labor before 37 completed weeks of gestation, third trimester (principal); O26.893 Other specified pregnancy related conditions, third trimester; R19.7 Diarrhea, unspecified; Z3A.34 34 weeks gestation of pregnancy
CPT/HCPCS: 36415; 59025; 80053; 82270; 85025; 87045; 87046; 87081; 87427; 87493; 87505; 87507; 87631; 87651; 87653; G0463; A9270; J0690; J7120

== ENCOUNTER 2024-11-27 11:13 | Outpatient (CLI) | payer BC, OTHER, SELFPAY ==
--- NOTE | 2024-11-27 11:30 | CRLHL7_ITS ---
For Patients: As a result of the Century Cures Act, medical imaging exams and procedure reports are released immediately into your electronic medical record. You may view this report before your referring provider. If you have questions, please contact your health care provider. OB ULTRASOUND VISHAL by LMP or US: 12/20/2024. GA: 36 w, 5 d. Single. Comparison: 11/01/2024, 10/24/2024, 10/17/2024. INDICATION: Growth. TECHNIQUE: Real time grayscale imaging of the fetus was performed. Transabdominal. POSITIONING: Vertex. AMNIOTIC FLUID: 5.7 cm. SDP (N: greater than 2 x 1 cm) PLACENTA: Technique: Transabdominal. PLACENTA POSITION: Posterior. DOPPLER: heart rate: 135 bpm. BIOMETRY: BPD: 8.6 cm. 34 w, 5 d, 12 percent. HC: 31.2 cm. 36 w, 6 d, <3 percent. AC: 31.4 cm. 35 w, 2 d, 23 percent. FL: 6.7 cm. 34 w, 2 d, <3 percent. FL/AC ratio: 21.26 percent. HC/AC ratio: 0.99. EFW: 2552 g. Weight: 5 lbs, 10 oz. age by this US: 34 w, 6 d. VISHAL by this US: 01/02/2025. Percentile by VISHAL: 14 percent. IMPRESSION: 1. Sonographic gestational age 34 weeks 6 days and sonographic due date 01/02/2025. Sonographic age is 13 days behind the clinical age. 2. Estimated weight 14th percentile. Abdominal circumference 23rd percentile. Head circumference less than 3rd percentile. Jaya Parra M.D. Diagnostic Radiologist [email or web address] SHAY/caron reardon/Dictated by: Jaya Parra MD @ 11/27/2024 12:20:00 PM (Electronically Signed)
== END 2024-11-27 11:14 | disposition home or self-care (01) ==
LOC: US 11:13
PROVIDERS: PCP Family Medicine; Visit Provider Advanced Practice Midwife
DX: Z87.59 Personal history of other complications of pregnancy, childbirth and the puerperium (principal); S29.9XXA Unspecified injury of thorax, initial encounter; Z3A.36 36 weeks gestation of pregnancy
CPT/HCPCS: 59025; 76816; 81513; 87481; 87661; G0463

== ENCOUNTER 2024-12-13 10:14 | Outpatient (CLI) | payer BC, SELFPAY ==
[2024-12-14 13:51] LABS: Strep B DNA Probe Negative (Negative)
[2024-12-14 14:26] LABS: Strep B Susceptibility Needed? No
== END 2024-12-13 10:15 | disposition home or self-care (01) ==
LOC: NFLDREF 10:14
PROVIDERS: PCP Family Medicine; Visit Provider Advanced Practice Midwife
DX: O09.93 Supervision of high risk pregnancy, unspecified, third trimester (principal); Z3A.39 39 weeks gestation of pregnancy
CPT/HCPCS: 87081; 87653

== ENCOUNTER 2024-12-14 19:51 | Outpatient (CLI) | payer BC, SELFPAY ==
[2024-12-14 19:57] VITALS: PULSE 83; O2SAT 99
[2024-12-14 20:00] VITALS: BP 107/69; PULSE 86
--- NOTE | 2024-12-14 22:11 | PC.OBNST ---
NST Note NST Note Start: 12/14/24 20:01 Freq: ONCE Status: Active Protocol: Document 12/14/24 22:09 HECTOR (Rec: 12/14/24 22:10 HECTOR [id number]) NST Note 3 Para (# of births) 2 EDC 12/20/24 Gestational Age In 39 Weeks & 1 Days Weeks & Days Patient Presented Contractions/cramping with Complaint(s) of Reactive Yes Appropriate for Yes Gestational Age ELIZABETH Hernandez RN Date 12/14/24 Reactive Yes Appropriate for Yes Gestational Age ELIZABETH Lane RN Date 12/14/24 OB NST charge Yes Complete NST Note Yes via Write Note The provider's electronic signature indicates the NST is reactive/appropriate for gestational age. *Note to provider: If an addendum is required, open the patient's chart and click on the note under the Nurse/Allied Health tab.
== END 2024-12-14 22:00 | disposition home or self-care (01) ==
LOC: OB OUT 19:51 → OB 19:52
PROVIDERS: PCP Family Medicine; Visit Provider Advanced Practice Midwife
DX: O47.1 False labor at or after 37 completed weeks of gestation (principal); Z3A.39 39 weeks gestation of pregnancy
CPT/HCPCS: 59025; G0463

== ENCOUNTER 2024-12-15 11:17 | Inpatient (IN) | payer BC, SELFPAY ==
[2024-12-15] VITALS (35 sets, daily range): BP systolic 96–119; BP diastolic 57–78; PULSE 60–100; RESP 16–18; TEMP 36.5–36.8; O2SAT 93–100; BMI 25.9
[2024-12-15] MEDS: LACTATED RINGERS 1000 ML 1,000 ML 1200 ML IV (11:22)
[2024-12-15] MEDS: fentaNYL 100 MCG/2 ML inj 25 MCG INTRATHECA (11:30)
--- NOTE | 2024-12-15 11:58 | W.PM.LDBA ---
Subjective History of Present Illness Date Seen: 12/15/24 Narrative: Patient is being admitted to Labor and Delivery for active labor at term. She is a 29 year old at 39.2 weeks gestation. Her full history and physical was dictated by Meenakshi Carpenter CNM on 12/04/24. Please see this for details. Kaci has been muriel frequently on and off for the last few days. She was in triage overnight but did not make cervical change so discharged home. Around 0100 this am she states that things started feeling a little different. She was found to be 8cm per RN exam on arrival to triage. She requested analgesia and a ITN was placed successfully. We discussed expectant management vs AROM given duration of pain relief with an ITN. She elected for AROM and a large amount of clear fluid was noted. Specific Issues/Plans 2 boys at home. This is a girl! H&P for labor admission completed 12/04/24 by Gavi ROSSI TRACK OILER Consider repeat GBS at 39 weeks #Intrauterine Growth Restriction; ? EFW <3% with normal UA doppler; RESOLVED, EFW 14% 5/6 *Dating by LMP at 9.1 weeks, 1st OB US off 7 days, LMP was kept for dating; MFM at [place] changed dating to 1st trimester US 11/[address] Avalos 10/17 who recommends keeping dates and encouraged MFM consult Offered MFM consult: declined, after reviewing again she is willing to do growth with MFM in 3 weeks UA doppler weekly and NST weekly: testing form completed Growth US every 3 weeks: Recommended Delivery recommended at 37 weeks, if remains severe will need to consult/collaborate or transfer to MD; Pt strongly desires to remain with CNM team? # Hx of IUGR with 1st (dx at 30 weeks) Consider growth u/s at 32 weeks EFW at Anatomy US: 13%ile, discussed earlier vs 32 weeks # Closely spaced on 07/18/2023 # Hx of depression/Anxiety On Lexapro last , stopped in September of this year, doing well # Chronic low back pain Injured back at work in previous . # Migraines, only twice this Reglan sent 08/10 # Anemia at 28 weeks, hgb 10.8 Recommend iron supplement MWF # Breech at 32 weeks, spontaneously RESOLVED # Low weight gain at 32 weeks Recommended increased intake, high protein diet # Campylobacter at 32 weeks, transferred to [place] for bloody stool and results came after transfer Treated with antibiotics by [facility] and discharged home 11/06 Level II growth follow-up with MFM at [facility] Ultrasound: 05/11/2024: 8 weeks, 1 day by CRL with sonographic VISHAL 12/20/2024. She was 9 1/7 weeks' by LMP. Dating chosen was that by LMP 7 days discrepant from this US. 07/23/2024: Posterior placenta without previa, normal fluid, visualized anatomy was normal. Heart and ventricular outflow tracts suboptimally visualized due to lie. EFW 13%, AC 19%, BPD 4%, HC 3%, FL 32%. 08/21/2024: Normal heart views. Normal fluid. Normal cord insertion into the placenta. 10/17/2024: EFW 1451 g, less than 3%. AC 8.7%, BPD 3.1%, HC 3.1%, FL less than 3%. Normal fluid, normal UA Doppler. Normal Dopplers on 10/24/2024 and 11/01/2024. Cephalic lie on November 01, SDP 6.0. 11/07/2023: 11/28/2023: Growth US, VISHAL changed by [place]. EFW 14%ile. FHR 135 COVID: declined Flu: 05/01/2024 TDAP: 09/17/2024 RSV: N/A 32wk Mental Health: OB - Problem Based A/P Additional Plan (1) Pain during labor: Status: Acute (2) Short interval between pregnancies complicating , antepartum: Status: Acute (3) Anxiety during : Status: Acute (4) Depression: Problem details: Stopped Lexapro in September Status: Acute (5) History of prior with IUGR : Problem details: 1st ; normal weight at Status: Acute Plan ASSESSMENT:? 29 at 39.2 weeks gestation? complicated by:?IUGR-resolved, close interval , anxiety and depression, anemia, low weight gain, and Campylobacter at 32 weeks. Labor type: Spontaneous, augmented with AROM. Active labor? Category 1 FHR pattern.?? Labor complicated by: none? GBS negative? PLAN:? 1. Routine intrapartum cares as ordered. AROM due to ITN analgesia to encourage labor progress. Continue with expectant management? 2. Monitoring per policy, continuous ? 3. Candidate for analgesia of choice.?Effective ITN analgesia in effect. ? 4. Patient encouraged to reposition and ambulate to promote physiologic labor and with RN assistance.? 5. Anticipate ? Delivery/Labor/Induction Plan Plan: expectant management OB Result Labs Blood Type: A (+) positive Rubella: immune RPR/VDLR: nonreactive GBS Status: negative HBsAG: negative OB Exam Physical Exam Vital signs: Pulse BP Pulse Ox 89 96/63 100 12/15/24 11:55 12/15/24 11:55 12/15/24 11:34 Narrative: Psychiatric:? Alert and oriented x3? HEENT:? Normocephalic, atraumatic? Neck:? Supple without adenopathy or thyromegaly? Lungs:? Clear to auscultation bilaterally? Heart:? Regular rate and rhythm, no murmur, rub or gallop? Abdomen:? Soft, nontender, and gravid? Extremities:? No edema or erythema? Detailed Labor and Delivery Exam Dilation (cm): 8 Effacement (%): 90 Cervix position: mid Consistency: soft Contraction Frequency: 2-3 Tachysystole: No Contraction intensity: Strong/Firm Fetus (Single) Station: -2 Amniotic Membrane Status: AROM Amniotic Membrane Fluid Description: Clear Heart Rate Baseline: 120 Monitor Accelerations: Present Monitor Decelerations: None Sales Developer Variability: Moderate (6-25)
--- NOTE | 2024-12-15 12:06 | P.ANBPRC_ITS ---
[facility] Medical History (Updated 12/15/24 @ 12:06 by Lu Forte CNM) Migraine without aura ?G43.009 - Migraine without aura, not intractable, without status migrainosus (ICD-10) contractions ?O47.00 - False labor before 37 completed weeks of gestation, unspecified trimester (ICD-10) Campylobacter gastrointestinal tract infection ?A04.5 - Campylobacter enteritis (ICD-10) Depression ?F32.A - Depression, unspecified (ICD-10) History of prior with IUGR ?Z87.59 - Personal history of other complications of , childbirth and the puerperium (ICD-10) Normal spontaneous vaginal delivery ?O80 - Encounter for full-term uncomplicated delivery (ICD-10) Surgical History (Updated 12/04/24 @ 13:11 by Lore Carpenter CNM) [place] teeth extracted ?K08.409 - Partial loss of teeth, unspecified cause, unspecified class (ICD- 10) Hx of appendectomy ?Z90.49 - Acquired absence of other specified parts of digestive tract (ICD- 10) Family History Paternal Grandfather Prostate cancer Other Breast cancer Social History Narrative: SOCIAL? ? Education: some college? ? 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 ? ? Partner: Calvin ? Lives with: Calvin, two sons, step daughter 50% of the time? Pets: chickens, cats, cows. ? ? Abuse: Denies past Safe at home with current partner ? ? Special Diet: Denies? ? Ok with a blood transfusion: yes? ? Culture or tenriism beliefs: denies? RISK FACTORS? ? Exercise Times/wk: Working, daily chores? ? Depression/Anxiety: anxiety? ? Previous Treatments Taking lexapro. Therapy: denies Seat Belt Use: Routinely ? Smoking: Denies past/present? ?Smoked about 5 years, 1 pack per day Alcohol/day: Denies while ? ? Caffeine: Coffee and maybe a pop ? Drug Use: Denies past/present? ? MRSA: no history Chicken pox: as a child What is your current living situation?: I presently have a place to live Problems where you live: mold, water leaks and no known problems In the past 12 months, utilities in danger of being shut off: no In past 12 months, lack of transportation kept you from medical appts, meetings, work, or getting things needed for daily living: no In the past 12 mos, have been you worried that your food would run out before you had money to buy more?: never true In the past 12 mos, the food you bought just didn't last and you didn't have money to buy more?: never true Smoking Status: Former smoker Do you use any of these nicotine containing products: None Second hand tobacco smoke exposure: No How often do you have a drink containing alcohol: never AUDIT-C Alcohol total score: 0 Non-prescribed substance use: denies use How often does anyone, including family, friends and others, physically hurt you : never How often does anyone, including family, friends and others, insult or talk down to you: never How often does anyone, including family, friends and others, threaten you with harm: never How often does anyone, including family, friends and others, scream or curse at you: never Health Related Social Needs: Inadequate housing (Z59.1) Meds Home Medications and Allergies Home Medications ?Medication ?Instructions ?Recorded ?Confirmed ?Type docosahexaenoic acid 200 mg 200 mg PO DAILY 08/27/22 0 12/15/24 History capsule ( DHA) cholecalciferol (vitamin D3) 25 50 mcg PO QDAY 3 12/15/24 History mcg (1,000 unit) capsule ondansetron HCl 4 mg tablet 4 mg PO Q6H PRN nausea and 05/11/24 12/15/24 Rx vomiting #30 tabs metoclopramide HCl 10 mg tablet 10 mg PO Q6H PRN heada cherry #30 tabs 08/10/24 12/15/24 Rx (Reglan) ferrous sulfate 325 mg (65 mg 325 mg PO QDAY 10/17/24 12/15/24 History iron) tablet (Feosol) docusate sodium 100 mg capsule 100 mg PO QDAY PRN cons tipation 11/01/24 12/15/24 Rx (Colace) #30 caps Allergies Allergy/AdvReac Type Severity Reaction Status Date / Time Penicillins Allergy Intermediate Rash Verified 12/15/24 11:41 Results Vital Signs Vital Signs: Last Vital Signs Pulse 89 12/15/24 11:55 BP 96/63 12/15/24 11:55 Pulse Ox 100 12/15/24 11:34 Anesthesia Procedures Intrathecal Patient Location: OB Start Time: 11:15 Stop Time: 11:35 Start Date: 12/15/24 Stop Date: 12/15/24 Reason for Block: procedure for pain Patient Position: sitting Performed By: Randolph Couch Preanesthetic Checklist: IV checked, risks and benefits discussed, monitors and equipment checked, pre-op evaluation, timeout performed and anesthesia consent Prep: chlorhexidine gluconate Monitoring: blood pressure monitoring, continuous pulse oximetry and heart rate Approach: midline Vertebral Space: lumbar (1-5) Needle Type: Sprotte Injection Technique: single-shot Needle gauge: 25 Events: cerebrospinal fluid (Aspirated and 0.75% marcaine 0.8 ml injected with 25mcg fentanyl)
[2024-12-15 12:08] LABS: Basophils Percent Auto 0.3 % (0.0-3.0); Eosinophils Percent Auto 1.6 % (0.0-7.0); Hemoglobin* 12.5 gm/dL (12.0-16.0); Immature Granulocytes Pct Auto 0.4 %; Lymphocytes Percent Auto 19.9 % (20-44); Mean Corpuscular HGB Conc 33 gm/dL (32-36); Mean Corpuscular Hemoglobin 29 pg (26-34); Mean Corpuscular Volume 87 fL (80-100); Monocytes Percent Auto 8.6 % (0.0-11.0); Neutrophils Percent Auto 69.2 % (42.0-72.0); Platelet Count* 234 K/uL (140-440); RDW Coefficient of Variation % 13.2 % (11.5-15.5); Red Blood Count 4.35 m/uL (4.00-5.20); White Blood Count* 12.79 K/uL (4.50-11.00)
[2024-12-15 12:10] LABS: Slide Review Reflex No
[2024-12-15] MEDS: LACTATED RINGERS 1000 ML 1,000 ML 125 ML IV (12:35)
[2024-12-15] MEDS: OXYTOCIN 30 unit/500 ML in NS 30 UNIT/500 ML BAG 300 UNIT IVPB (14:16)
--- NOTE | 2024-12-15 14:32 | W.PM.OBVAGDE ---
OB Procedure Vag Delivery Mother Details Mother Details: The patient is a 29 year-old, 3, Para 2, admitted on 12/15/24 at Days gestation. : 3 Para: 3 Weeks Gestation: 39.2 Admission Date: 12/15/24 Additional Details Amniotic Membrane Status: AROM Amniotic Membrane Rupture Date: 12/15/24 Amniotic Membrane Rupture Time: 11:54 Amniotic Membrane Fluid Description: Clear Analgesia/Anesthesia Type: Intrathecal Waterbirth: No Pitcoin: Yes ([facility] only) Intrapartal Events: Labor Augmentation Delivery augmentation: rupture of membranes Labor Onset: 06:30 Complete: 13:58 Pushin:58 Heart: heart tones during second stage were category 2 with occasional variable decelerations. Delivery Details Delivery Date: 12/15/24 Delivery Time: 14:13 Route of delivery: Infant Gender: Female Infant Viability: Alive; Heart Rate Present Position at Delivery: OA Delivery Details: Patient was admitted for active labor and progressed with AROM augmentation. AROM noted at 1154 with clear fluid. Patient was complete and pushing at 1358. There was a very stretchy but persistent anterior lip present with Kaci feeling some contraction pain and pressure. It was easily reduced with pushing. of a viable female at 1413 in recumbent position. Vertex delivered OA. No shoulder. Nuchal cord 1x. Unable to reduce after delivery of the head but able to deliver through without difficulty. Body delivered easily and without incident. passed to mothers abdomen with a vigorous cry. Cord was clamped and cut at > 5 minutes. APGARS were 9 at one minute and 9 at five minutes respectively. Mouth was bulb suctioned. Intact placenta with a 3 vessel cord delivered spontaneously at 1421. Fundus firm. Intact perineum identified after through inspection and no repair was necessary. QBL 100 cc. Mother and baby stable; mother plans to breastfeed. weight pending. Additional small trickle noted a while after delivery. Disucssed expectant amangment at that time vs rectal or oral cytotec. After discussiona nd shared decision making she elected to proceed with rectal Cytotec. 1 Minute Interval Total Score: 9 5 Minute Interval Total Score: 9 Additional Details Shoulder Dystocia: No Placenta Delivery Time: 14:21 Placental Delivery Description: Spontaneous Procedure Done: Global Blood Loss: 100 Laceration: None Episiotomy Description: None Blood Loss Measurement Type: QBL Bakri Used: No Sponge/Need Count Correct: Yes Cord Vessel Description: 3 Vessels, Nuchal Cord and Delivered through Event Summary Status: Mother and were stable after delivery. Disposition: floor
[2024-12-15] MEDS: miSOPROStoL 800 MCG/4 TABLET PR (14:39)
[2024-12-15] MEDS: ACETAMINOPHEN 500 MG TABLET 1000 MG PO (22:30)
[2024-12-16 01:30] VITALS: BP 107/66; PULSE 74; RESP 18; TEMP 36.7; O2SAT 98
[2024-12-16 05:53] VITALS: BP 107/73; PULSE 67; RESP 18; TEMP 36.9; O2SAT 97
[2024-12-16] MEDS: ACETAMINOPHEN 500 MG TABLET 1000 MG PO (08:56)
[2024-12-16] MEDS: DOCUSATE SODIUM 100 MG CAPSULE PO (08:56)
[2024-12-16 09:00] VITALS: BP 123/82; PULSE 80; RESP 16; TEMP 36.9; O2SAT 97
--- NOTE | 2024-12-16 09:23 | PM.OBDSVD1 ---
DS: Providers Provider Date Seen: 12/16/24 Date of admission: 12/15/24 11:17 Primary care physician: Jaya Patricia MD Admitting Clinician: Lu Forte CNM Attending Physician on discharge: Lu Forte CNM Date of Discharge: 12/16/24 DS: Diagnosis Discharge Diagnosis (1) Lactating mother: Status: Acute (2) care following vaginal delivery: Status: Acute (3) Anxiety during : Status: Acute (4) Depression: Status: Acute Problem details: Stopped Lexapro in September Exam Narrative: Exam Narrative: ?GENERAL APPEARANCE:? normal affect, alert, no distress? MOOD:? appropriate? CHEST:? clear to auscultation and percussion? HEART:? regular rate and rhythm? ABDOMEN:? soft, non-tender the uterine fundus is U/2 and is appropriate for the stage of recovery.? PERINEUM:? mild edema of the perineum, there is a intact perineum that is healing well.? EXTREMITIES:? normal and no edema? Const: Vital Signs, click to edit/add: Vital Signs - 24 hr 12/15/24 11:29 12/15/24 11:33 12/15/24 11:34 Temperature Pulse Rate 89 Pulse Rate [Pulse Oximeter] Respiratory Rate Blood Pressure 119/72 Blood Pressure [Ri ght Arm] Pulse Oximetry 100 93 Oxygen Delivery [facility] 12/15/24 11:34 12/15/24 11:35 12/15/24 11:37 Temperature Pulse Rate 68 76 Pulse Rate [Pulse Oximeter] Respiratory Rate Blood Pressure 112/68 107/67 Blood Pressure [Ri ght Arm] Pulse Oximetry 100 Oxygen Delivery [facility] 12/15/24 11:39 12/15/24 11:41 12/15/24 11:43 Temperature Pulse Rate 74 68 71 Pulse Rate [Pulse Oximeter] Respiratory Rate Blood Pressure 105/67 107/72 106/73 Blood Pressure [Ri ght Arm] Pulse Oximetry Oxygen Delivery [facility] 12/15/24 11:45 12/15/24 11:47 12/15/24 11:49 Temperature Pulse Rate 67 65 78 Pulse Rate [Pulse Oximeter] Respiratory Rate Blood Pressure 104/75 103/73 109/78 Blood Pressure [Ri ght Arm] Pulse Oximetry Oxygen Delivery [facility] 12/15/24 11:55 12/15/24 12:07 12/15/24 12:09 Temperature Pulse Rate 89 67 72 Pulse Rate [Pulse Oximeter] Respiratory Rate Blood Pressure 96/63 108/65 106/67 Blood Pressure [Ri ght Arm] Pulse Oximetry Oxygen Delivery [facility] 12/15/24 12:14 12/15/24 12:19 12/15/24 12:24 Temperature Pulse Rate 70 65 60 Pulse Rate [Pulse Oximeter] Respiratory Rate Blood Pressure 104/65 106/67 107/67 Blood Pressure [Ri ght Arm] Pulse Oximetry Oxygen Delivery [facility] 12/15/24 12:46 12/15/24 12:51 12/15/24 13:01 Temperature 97.7 F Pulse Rate 61 73 Pulse Rate [Pulse Oximeter] Respiratory Rate 16 Blood Pressure 111/72 117/67 Blood Pressure [Ri ght Arm] Pulse Oximetry Oxygen Delivery [facility] 12/15/24 13:16 12/15/24 13:30 12/15/24 13:46 Temperature Pulse Rate 82 70 60 Pulse Rate [Pulse Oximeter] Respiratory Rate Blood Pressure 108/62 109/67 105/63 Blood Pressure [Ri ght Arm] Pulse Oximetry Oxygen Delivery [facility] 12/15/24 14:01 12/15/24 14:27 12/15/24 14:27 Temperature Pulse Rate 100 67 Pulse Rate [Pulse Oximeter] Respiratory Rate 16 Blood Pressure 118/76 109/61 Blood Pressure [Ri ght Arm] Pulse Oximetry Oxygen Delivery [facility] 12/15/24 14:43 12/15/24 14:43 12/15/24 14:57 Temperature Pulse Rate 71 72 Pulse Rate [Pulse Oximeter] Respiratory Rate 16 Blood Pressure 116/59 L 109/57 L Blood Pressure [Ri ght Arm] Pulse Oximetry Oxygen Delivery [facility] 12/15/24 14:57 12/15/24 15:12 12/15/24 15:12 Temperature 98.2 F 98.0 F Pulse Rate 73 Pulse Rate [Pulse Oximeter] Respiratory Rate 16 16 Blood Pressure 118/64 Blood Pressure [Ri ght Arm] Pulse Oximetry Oxygen Delivery [facility] 12/15/24 15:32 12/15/24 15:33 12/15/24 16:00 Temperature Pulse Rate 68 73 Pulse Rate [Pulse Oximeter] Respiratory Rate 16 Blood Pressure 114/65 113/62 Blood Pressure [Ri ght Arm] Pulse Oximetry Oxygen Delivery Me thod 12/15/24 16:00 12/15/24 16:12 12/15/24 16:12 Temperature Pulse Rate 79 Pulse Rate [Pulse Oximeter] Respiratory Rate 16 16 Blood Pressure 114/76 Blood Pressure [Ri ght Arm] Pulse Oximetry Oxygen Delivery Me thod 12/15/24 16:27 12/15/24 16:27 12/15/24 16:42 Temperature Pulse Rate 72 79 Pulse Rate [Pulse Oximeter] Respiratory Rate 16 Blood Pressure 111/69 112/76 Blood Pressure [Ri ght Arm] Pulse Oximetry Oxygen Delivery Me thod 12/15/24 16:42 12/15/24 20:05 12/16/24 01:30 Temperature 98.0 F 98.1 F Pulse Rate Pulse Rate [Pulse Oximeter] 84 74 Respiratory Rate 16 18 18 Blood Pressure Blood Pressure [Ri ght Arm] 106/69 107/66 Pulse Oximetry 97 98 Oxygen Delivery Me thod Room Air Room Air 12/16/24 05:53 Temperature 98.4 F Pulse Rate Pulse Rate [Pulse Oximeter] 67 Respiratory Rate 18 Blood Pressure Blood Pressure [Ri ght Arm] 107/73 Pulse Oximetry 97 Oxygen Delivery Me thod Room Air Documenting provider has reviewed patient's vital signs: yes OB - DS: Summary Hospital Course Hospital Course: Kaci is a 29 y.o. G 3 P 3 who was admitted to [facility] for active labor. ?She had a NVD that was uncomplicated. The patient feels well. ?The pain is well controlled with current medications. ?She has no new complaints. ?She is breast feeding and reports things are going well. the patient has done well.? Vitals have been stable.? She has remained afebrile.? Has a good appetite, is tolerating a general diet. ?She is voiding without difficulty.? She is passing gas and has had a bowel movement.? She is ambulating and denies any dizziness.? Has small amount of rubra lochia. She is planning mini pill (maybe Slynd) for prevention. We discussed mood with her history of anxiety and depression. she states that she is already feeling better not being and declines restarting medication at this time. She will reach out if mood concerns present. Problems: none Peripartum Data Infant delivery method: Vaginal Laceration description: None Episiotomy description: None complications: none Gender: Female Discharge Plan: Home Status at Discharge Functional status at discharge: independent ambulation Overall status at discharge: patient is progressing back to baseline Time Spent with Patient Time attestation: Total time spent providing and/or coordinating discharge services: Discharge Plan Discharge Disposition: Home, Self-Care Date of Admission: 12/15/24 11:17 Attending Provider on Discharge: Lu Forte Primary Care Provider: Jaya Patricia Condition: Stable Anticipated Discharge Date/Time: 12/16/24 14:00 Discharge Medications: New docusate sodium 100 mg Capsule 100 mg PO DAILY Qty: 90 0RF Rx Instructions: Take 1-2 tablets daily as needed for constipation. ibuprofen 600 mg Tablet 600 mg PO Q6H PRNQty: 90 0RF Continued DHA 200 mg capsule 200 mg PO DAILY cholecalciferol (vitamin D3) 25 mcg (1,000 unit) capsule 50 mcg PO QDAY ferrous sulfate [Feosol] 325 mg (65 mg iron) tablet 325 mg PO QDAY metoclopramide HCl [Reglan] 10 mg tablet 10 mg PO Q6H PRN (Reason: headache) Qty: 30 0RF Discontinued ondansetron HCl 4 mg tablet 4 mg PO Q6H PRN (Reason: nausea and vomiting) Qty: 30 3RF docusate sodium [Colace] 100 mg capsule 100 mg PO QDAY PRN (Reason: constipation) Qty: 30 2RF Discharge Orders: Discharge Order (Routine); Ordered 12/16/24 Ordered By: Lu Forte Patient Education: OB Vaginal/Breast Feeding Additional Instructions: Discharge instructions were reviewed with the patient including signs and symptoms of infection and home going medications.? Lifting Restrictions: 20 pounds for 6? weeks? ?? Do not drive while taking narcotic pain meds.? Off Work or School for 6 weeks.? ?? Symptoms to report to doctor:? -Bleeding that saturates more than one pad per hour? -Passing clots larger than the size of a golf ball? -Pain not relieved by prescribed medication? -Fever above 100.4 degrees Fahrenheit? -A foul vaginal odor? -Difficulty in emotions, mood and functions? -Thoughts of hurting yourself and/or ? -Painful, reddened area in your breast? -Any drainage, redness or tenderness in your IV/epidural site? -Severe headache that doesn't improve after taking medications? -Changes in vision, including temporary loss of vision, blurred vision, and/or light sensitivity? -Upper abdominal pain (usually under ribs on the right side)? -Decrease in urination or painful, frequent urinating? -Chest pain? -Shortness of breath? -Tenderness or pain with redness and/swelling in the calf(s) of your leg? ?? Follow Up in clinic in 2 and 6 weeks.? ?? consultation services are available to all mothers and babies for the first year after delivery.? To make an appointment, please call [phone].? Activity Level: Activity as Tolerated Discharge Diet: Regular Follow Up Appointments: [facility] [Provider Group] Forms: MyHealth Info Instructions
[2024-12-16 13:22] VITALS: BP 109/71; PULSE 81; RESP 16; TEMP 36.9; O2SAT 97
[2024-12-16 13:51] LABS: Rapid Plasma Reagin (RPR) Non Reactive (Non Reactive)
[2024-12-16 17:35] VITALS: BP 109/75; PULSE 79; RESP 16; TEMP 36.8; O2SAT 97
== END 2024-12-16 19:05 | disposition home or self-care (01) | DRG 560 ==
LOC: OB OUT 11:17 → OB 11:17
PROVIDERS: Admitting Provider Advanced Practice Midwife; PCP Family Medicine; Visit Provider Advanced Practice Midwife
DX: O99.344 Other mental disorders complicating childbirth (principal); F41.9 Anxiety disorder, unspecified; F32.A Depression, unspecified; Z37.0 Single live birth; Z3A.39 39 weeks gestation of pregnancy
CPT/HCPCS: 01967; 36415; 85025; 86592; 86850; 86900; 86901; A9270; J3010; J7120

== ENCOUNTER 2025-03-10 20:41 | Emergency (ER) | payer BC, SELFPAY ==
--- OUTSIDE RECORDS SUMMARY | 2025-03-10 20:43 | XMS_ITS | Clinical Summary ---
Author Organization [facility] Address [address] [place] [address] Care Team Providers Care Real Estate Specialist Name Role Phone Elsewhere, Pcp Primary Care Provider Unavailabl e Source Comments Patient records contain information from all sites at [facility]. For routine questions regarding patient records, call [phone] during business hours, M-F 8:00 AM - 5:00 PM Central Time. Record requests for emergency care only can be directed to [phone] at any time.[facility] Allergies Active Allergy Reactions Criticality Noted Date Comments Penicillins Rash Low 12/04/2018 Medications * This document contains information received from the source organization and may not represent a complete record from that organization. multivitamin tablet daily. 07/08/2016 Active loratadine (for_CLARITIN) 10 mg tablet Take 10 mg by mouth daily as needed for allergies. Active yesoesd-Ve-icqv- FA (VINATE ONE) 60 mg iron-1 mg per tablet Take 1 tablet by mouth daily. Active Active Problems Problem Noted Date Diagnosed Date Labor Third Trimeste r With Delivery Third Trimester Fetus 1 11/05/2024 Diarrhea 11/05/2024 Other Acne 01/21/2012 Gastroesophageal Reflux Disease NOS Estimated Date of Delivery Comme nts Yes 12/20/2024 Based on last me nstrual period of 03/15/2024 Immunizations Immunization Administration Dates Next Due 4vHPV (discontinued) 06/02/2010,03/19/2010,09/29 DTP 1997 DTaP (Infanrix, [employer]) 02/20/2002,,1997,10/07,1997 HepA Pediatric/Adolescent 07/23/2013,09/29/2009 HepB Pediatric/Adolescent 02/21/1998,,1997,05/29 HepB, Unspecified 02/21/1998,1997 Hib, Unspecified 08/27/1998, 8,1997,07/31 IPV 02/20/2002,1997,1997 MCV4 (Menactra)(Discontinued) 09/09/2009 MCV4 (Menveo) 11/09/2013 MMR 02/20/2002,05/28/1998 Meningococcal ACWY, Unspecified 09/09/2009 OPV, Trivalent 05/28/1998 Polio, Unspecified 05/28/1998 Tdap 06/08/2017,06/02/2010,09/29/2009 influenza vaccine quad (FLUZONE/FLUARIX) (6 months and older)(PF) 06/08/2017 Family History Medical History Relation Name Comments Breast cancer Aunt Great aunt No Known Problems Father Drug abuse Father's Brother sanju raymond Randall's esophagus Maternal Grandfather bull middleton Migraines Maternal Grandfather bull middleton Sleep apnea Maternal Grandfather bull middleton Asthma Mother farzanehalexa raymond Randall's esophagus Mother farzanehalexa raymond Hyperlipidemia Mother farzanehalexa raymond Hypertension Mother farzaneh quintinliregulo Migraines Mother farzanehalexa raymond ADD Mother's Sister memenga middleton Prostate cancer Paternal Grandfather No Known Problems Paternal Grandmother Anxiety disorder Sister luciana ribeirofabricio Depression Sister luciana martinezregulo Colon cancer Neg Hx Relation Name Status Comments Aunt Great aunt Alive Father Father's Brother sanju ribeiroliregulo Maternal Grandfather bull middleton Mother farzaneh quintinlik Mother's Sister memenga middleton Paternal Grandfather Paternal Grandmother Sister luciana ribeiromirellaregulo Social History Tobacco Use Types Packs/Day Years Used Date Smoking Tobacco: Former Cigarettes 1 2.5 0 10/18/2017 - 04/18/2020 Smokeless Tobacco: Never Tobacco Cessation:Ready to Q uit: No; Counseling Given: Yes Comments:Pt stopped smoking as of last week Alcohol Use Standard Drinks/Week Comments Not Currently 0 (1 standard drink = 0.6 oz pur e alcohol) infrequently [facility] Utilities Answer Date Recorded In the past 12 months has th e electric, gas, oil, or water company threatened to shut off services in your home? No 11/05/2024 Humiliation, Afraid, Rape, and Kick questionnair e Answer Date Recorded Within the last year, have y ou been afraid of your partner or ex-partner? No 11/05/2024 Within the last year, have y ou been humiliated or emotionally abused in other ways by your partner or ex-partner? No Within the last year, have y ou been kicked, hit, slapped, or otherwise physically hurt by your partner or ex-partner? No 11/05/2024 Within the last year, have y ou been raped or forced to have any kind of sexual activity by your partner or ex-partner? No 11/05/2024 Hunger Vital Sign Answer Date Recorded Within the past 12 months, y ou worried that your food would run out before you got the money to buy more. Never true 11/06/19 25 Within the past 12 months, t he food you bought just didn't last and you didn't have money to get more. Never true 11/05/2024 PRAPARE - Transportation Answer Date Re corded In the past 12 months, has l ack of transportation kept you from medical appointments or from getting medications? No 11/2024 In the past 12 months, has l ack of transportation kept you from meetings, work, or from getting things needed for daily living? No 11/05/2024 Depression Answer Date Recor ded PHQ-9 Total Score (max 27) 2 04/21 Housing Stability Answer Date Recorded What is your living situation today? I have a [facility] place to live 11/05/2024 Education Answer Date Recorded What is the highest level of school you have completed or the highest degree you have received? 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 Gender Identity Female 02/13/2018 10:53 AM CDT Sexual Orientation Straight 02/13/2018 10 :53 AM CDT Last Filed Vital Signs Vital Sign Reading Time Taken Comments Blood Pressure 103/62 11/07/2024 11:12 PM CDT Pulse 91 11/07/2024 11:12 PM CDT Temperature 36.8 C (98.2 F) 11/07/2024 11:12 PM CDT Respiratory Rate 18 11/07/2024 11:1 2 PM CDT Oxygen Saturation 99% 11/07/2024 11: 12 PM CDT Inhaled Oxygen Concentration - - Weight 66.2 kg (145 lb 15.8 oz) 11/05/2024 3:40 PM CDT Height 160 cm (5' 2.99) 11/05/2024 3:40 PM CDT Body Mass Index 25.87 11/05/2024 3:40 PM CDT Plan of Treatment Health Maintenance Due Date Last Done Comments Hepatitis C Screening 1997 Depression Screening (Annual PHQ-2) 07/04/2024 COVID-19 Vaccine ( season) 2025 Influenza Vaccine (#1) 2025 , 05/30/2023, 06/08/2017, Additional history exists Cervical/Vaginal Cancer Screening 08/25/2026 08/25/2023, 12/20/2018 DTaP,Tdap,and Td Vaccines (12 - Td or Tdap) 09/17/2034 09/17/2024, 05/12/2023, 09/24/2020, Additional history exists Hepatitis B Vaccines Completed 02/21/1998, 02/21/1998, 1997, Additional history exists IPV Vaccines Completed 02/20/2002, 05/05, 05/28/1998, Additional history exists HPV Vaccines Completed 06/02/2010, 03/04, 09/29/2009 Chlamydia and Gonorrhea Screening Discontinued 04/21/2020, 06/13/2019, 03/06/2019, Additional history exists RSV vaccine - (32-36 weeks) or 60+ years Completed 05/30/2023 Tdap vaccine - (27-36 weeks) Completed 09/17/2024, 05/12/2023, 09/24/2020, Additional history exists Pneumococcal vaccine (0-49 years) Aged Out No longer eligible based on patient's age to complete this topic Medical Devices Explanted Type Area Office Manager Receptionist Device Identifier Shelf Expiration Date Model / Serial / Lot Jadiel-03/04 Implanted: by Pam Martinez APRN, C.N.P. (Quantity not on file) Subdermal Contraceptive Implant Left: Arm Procedures Procedure Name Priority Date/Time Associated Diagnosis Comments CHLAMYDIA/GONORRHOE AE AMPLIFIED RNA Routine 04/21/2020 11:29 AM CDT Examination Normal First Trimester THINPREP SCREEN HPV REFLEX Routine 12/20/2018 12:27 PM CDT Encounter For Screening For Malignant Neoplasm Of Cervix from Last 3 Months or Most Recently Relevant to Health Maintenance Results * Chlamydia / Gonorrhoeae Amplified RNA (04/21/2020 11:29 AM CDT) Source Swab, Cervix/Endoc ervix 04/21/2020 10:46 PM CDT MKTO Chlamydia trachomatis amplified RNA Negative Negative 04/21/2020 10:46 PM CDT MKTO Source Swab, Cervix/Endoc ervix 04/21/2020 10:46 PM CDT MKTO Neisseria gonorrhoeae amplified RNA Negative Negative 04/21/2020 10:46 PM CDT MKTO Varies (Cervix/Endocerv ix) 04/21/2020 11:29 AM CDT 04/21/2020 2:59 PM CDT us Bhaskar Arboleda M.D. LAB MICROBIOLOGY - GENER AL ORDERABLES Final Result [facility] [address] [place] [address], [facility] MKTO [facility] [address] [place] [address] * ThinPrep Screen HPV Reflex (12/20/2018 12:27 PM CDT) 12/25/2018 1:01 PM CDT Report electronically signed by EUN Aleman(ASCP) I verify that I have examined all relevant slides/materials for the specimen(s) and rendered or confirmed the diagnosis. 12/25/2018 1:01 PM CDT Gross Description Received specimen in a ThinPrep vial. 12/25/2018 1:01 PM CDT Pap Test Source Cervical/Endocervi afshin 12/25/2018 1:01 PM CDT Interpretation Cervical/Endocervi afshin (ThinPrep): Satisfactory for Evaluation Negative for Intraepithelial Lesion or Malignancy 12/25/2018 1:01 PM CDT Varies (Cervix/Endocerv ix) 12/20/2018 12:27 PM CDT 12/21/2018 11:50 AM CDT us aCndi Hatch C.N.P. LAB PAP PATHDX ORDERABLES Final Result [facility] [address] [place] [address], [facility] from Last 3 Months or Most Recently Relevant to Health Maintenance Insurance [facility] Care Teams Real Estate Specialist Relationship Specialty Start Date End Date Elsewhere, Pcp PCP - General Family Medicine 08/11/17
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
--- OUTSIDE RECORDS SUMMARY | 2025-03-10 20:43 | XMS_ITS | Encounter Summary ---
Author Organization [facility] Address [address] [place] [address] Care Team Providers Care Track Greaser Name Role Phone Elsewhere, Pcp Primary Care Provider Unavailabl e Encounter Details Date Type Department Care Team (Latest Contact Info) Description 11/05/2024 Intake [facility] Social History Tobacco Use Types Packs/Day Years Used Date Smoking Tobacco: Former Cigarettes 1 2.5 0 10/18/2017 - 04/18/2020 Smokeless Tobacco: Never Comments:Pt stopped smoking as of last week Alcohol Use Standard Drinks/Week Comments Not Currently 0 (1 standard drink = 0.6 oz pur e alcohol) infrequently [facility] Utilities Answer Date Recorded In the past 12 months has e electric, gas, oil, or water company [...] your living situation today? 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
[2025-03-10 21:12] VITALS: BP 135/83; PULSE 77; RESP 20; TEMP 36.9; O2SAT 94; BMI 25.3
--- NOTE | 2025-03-10 21:54 | ED.SOB ---
HPI - SOB/Dyspnea General Date Seen: 03/10/25 Chief Complaint: Shortness of Breath/Dyspnea Stated Complaint: Difficulty breathing Time Seen by Provider: 03/10/25 21:34 Source: patient Mode of arrival: ambulatory Limitations: no limitations History of Present Illness HPI Narrative: Patient is a 29-year-old female presenting to the emergency department for shortness of breath. She states over the past several months she has been having episodes where she has feel short of breath when she would wake up. She states she will feel very wheezy and then symptoms will go away throughout the day. This does not occur every day. She states today it was at its worse because she was hoping her in the wood shed and lots of dust got kicked up. She states she was extremely wheezy at this time. Symptoms are greatly improved now. She states the shortness of breath feels resolved but she still notices some mild wheezing. Has no history of asthma with states her mother has asthma. No other medical issues. No history of heart disease. Denies any chest pain. Has been having a cough. Denies diarrhea, constipation, headache, lightheadedness, dizziness, weakness, numbness. No history of blood clots but currently is on a hormonal control pill. No other concerns noted at this time. Related Data Home Medications ?Medication ?Instructions ?Recorded ?Confirmed docosahexaenoic acid 200 mg 200 mg PO DAILY 08/27/22 03/08/25 capsule ( DHA) cholecalciferol (vitamin D3) 25 5,000 unit PO QDAY 03/08/25 03/08/25 mcg (1,000 unit) capsule loratadine 10 mg tablet (Claritin) 10 mg PO QDAY 03/08/25 03/08/25 Previous Rx's ?Medication ?Instructions ?Recorded norethindrone (contraceptive) 0.35 0.35 mg PO QDAY #84 tabs 12/28/24 mg tablet albuterol sulfate 90 mcg/actuation 2 puff inhalation Q4-6H PRN 03/10/25 aerosol inhaler shortness of breath or wheezing #8.5 grams Allergies Allergy/AdvReac Type Severity Reaction Status Date / Time Penicillins Allergy Intermediate Rash Verified 03/08/25 09:50 Review of Systems Status of ROS: Reports: 10 or more systems reviewed and unremarkable except as noted in History and below [facility] Medical History Low weight gain during ?O26.10 - Low weight gain in , unspecified trimester (ICD-10) Intrauterine growth restriction (IUGR) affecting care of mother, third trimester, single gestation ?O36.5930 - Maternal care for other known or suspected poor growth, third trimester, not applicable or unspecified (ICD-10) Short interval between pregnancies complicating , antepartum ?O09.899 - Supervision of other high risk pregnancies, unspecified trimester (ICD-10) Migraine without aura ?G43.009 - Migraine without aura, not intractable, without status migrainosus (ICD-10) contractions ?O47.00 - False labor before 37 completed weeks of gestation, unspecified trimester (ICD-10) Campylobacter gastrointestinal tract infection ?A04.5 - Campylobacter enteritis (ICD-10) Depression ?F32.A - Depression, unspecified (ICD-10) History of prior with IUGR ?Z87.59 - Personal history of other complications of , childbirth and the puerperium (ICD-10) Normal spontaneous vaginal delivery ?O80 - Encounter for full-term uncomplicated delivery (ICD-10) Surgical History [place] teeth extracted ?K08.409 - Partial loss of teeth, unspecified cause, unspecified class (ICD-10) Hx of appendectomy ?Z90.49 - Acquired absence of other specified parts of digestive tract (ICD-10) Family History Paternal Grandfather Prostate cancer Other Breast cancer Social History Narrative: SOCIAL? ? Education: some college? ? 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 ? ? Partner: Calvin ? Lives with: Calvin, two sons, step daughter 50% of the time? Pets: chickens, cats, cows. ? ? Abuse: Denies past Safe at home with current partner ? ? Special Diet: Denies? ? Ok with a blood transfusion: yes? ? Culture or methodist beliefs: denies? RISK FACTORS? ? Exercise Times/wk: Working, daily chores? ? Depression/Anxiety: anxiety? ? Previous Treatments Taking lexapro. Therapy: denies Seat Belt Use: Routinely ? Smoking: Denies past/present? ?Smoked about 5 years, 1 pack per day Alcohol/day: Denies while ? ? Caffeine: Coffee and maybe a pop ? Drug Use: Denies past/present? ? MRSA: no history Chicken pox: as a child What is your current living situation?: I presently have a place to live Problems where you live: no known problems In the past 12 months, utilities in danger of being shut off: no In past 12 months, lack of transportation kept you from medical appts, meetings, work, or getting things needed for daily living: no In the past 12 mos, have been you worried that your food would run out before you had money to buy more?: never true In the past 12 mos, the food you bought just didn't last and you didn't have money to buy more?: never true Smoking Status: Former smoker What tobacco products do you use: cigarettes Do you use any of these nicotine containing products: None Second hand tobacco smoke exposure: No How often do you have a drink containing alcohol: never AUDIT-C Alcohol total score: 0 Non-prescribed substance use: denies use How often does anyone, including family, friends and others, physically hurt you: never How often does anyone, including family, friends and others, insult or talk down to you: never How often does anyone, including family, friends and others, threaten you with harm: never How often does anyone, including family, friends and others, scream or curse at you: never service: No Exam Narrative: Exam Narrative: Const: Well-nourished, Well-developed, in mild distress Eyes: PERRL, no conjunctival injection, and symmetrical lids HENT: Atraumatic external nose and ears. Moist mucous membranes. Neck: Symmetric, trachea midline, No thyromegaly. CVS: RRR, No murmurs or gallops. Peripheral pulses 2+ and equal in all extremities RESP: Unlabored respiratory effort. Mild wheezing noted GI: Nontender/Nondistended, No rebound or guarding. MSK:Extremities w/o deformity, Normal Active ROM Skin: Warm, Dry. No rashes or lesions. Neuro: Normal Muscle tone, No focal neurological deficits. Psych: Awake, Alert, & Oriented x3. Appropriate mood and affect. Const: Vital Signs, click to edit/add: Vital Signs - 24 hr 03/10/25 21:12 Temperature 98.4 F Pulse Rate [Pulse Oximeter] 77 Respiratory Rate 20 Blood Pressure [Ri ght Upper Arm] 135/83 Pulse Oximetry 94 Oxygen Delivery Me thod Room Air Course Vital Signs Vital signs: Initial Vital Signs Temperature 98.4 F 03/10/25 21:12 Temperature Source Temporal Artery Scan 03/10/25 21:12 Pulse Rate 77 03/10/25 21:12 Respiratory Rate 20 03/10/25 21:12 Blood Pressure 135/83 03/10/25 21:12 Blood Pressure Mean 100 03/10/25 21:12 Blood Pressure Position Sitting 03/10/25 21:12 Pulse Oximetry 94 03/10/25 21:12 Oxygen Delivery Method Room Air 03/10/25 21:12 Vital Signs Temperature 98.4 F 03/10/25 21:12 Pulse Rate 77 03/10/25 21:12 Respiratory Rate 20 03/10/25 21:12 Blood Pressure 135/83 03/10/25 21:12 Pulse Oximetry 94 03/10/25 21:12 Oxygen Delivery Method Room Air 03/10/25 21:12 Temperature 98.4 F 03/10/25 21:12 Pulse Rate 77 03/10/25 21:12 Respiratory Rate 20 03/10/25 21:12 Blood Pressure 135/83 03/10/25 21:12 Pulse Oximetry 94 03/10/25 21:12 Oxygen Delivery Method Room Air 03/10/25 21:12 MDM - SOB/Dyspnea MDM Narrative Medical decision making narrative: Patient is a 29-year-old female presenting for shortness of breath. The differential diagnosis of shortness of breath is broad and includes common etiologies such as COPD, asthma, pneumonia, viral syndrome, etc. More serious etiologies considered include PE, CHF, coronary artery disease, pneumothorax, aortic dissection, aortic aneurysm. There is some mild wheezing so I am wondering if there is some underlying reactive airway disease. She is on a control pill so will do D-dimer to look for signs of a PE. Also do BMP, CBC, viral swabs, EKG, troponin. Patient's EKG reviewed by myself shows no acute concerning abnormalities. Lab work returned showing no acute concerning abnormalities. She has negative D-dimer and PE can be ruled out. Troponin within normal limits. Considering like the symptoms I do not believe repeat troponin is necessary. After think a Lonnievor denies a for got ordered a chest x-ray on her. I went to speak to her about this and she is not feel like she wants to wait for a chest x-ray to be done and read. This seems reasonable as it is unlikely she has been having pneumonia or pneumothorax for several months. At this time she is feeling well and I do believe she is safe for discharge. She did have some mild wheezing so I will order her a albuterol inhaler. Also give her a spacer for the inhaler. She is agreeable to this plan. Lab Data Labs: Lab Results 03/10/25 Range/Units 21:45 WBC 8.82 (4.50-11.00) K/uL RBC 4.62 (4.00-5.20) m/uL Hgb 13.2 (12.0-16.0) gm/dL Hct 40.6 (33.0-51.0) % MCV 88 (80-100) fL MCH 29 (26-34) pg MCHC 33 (32-36) gm/dL RDW Coeff of Keke 13.1 (11.5-15.5) % Plt Count 284 (140-440) K/uL Neut % (Auto) 40.8 L (42.0-72.0) % Lymph % (Auto) 40.5 (20-44) % [place] % (Auto) 7.9 (0.0-11.0) % Eos % (Auto) 10.0 H (0.0-7.0) % Baso % (Auto) 0.7 (0.0-3.0) % Neut # (Auto) 3.60 (1.7-7.0) K/uL Lymph # (Auto) 3.57 H (0.90-2.90) K/uL [place] # (Auto) 0.70 (0.00-0.90) K/UL Eos # (Auto) 0.90 H (0.00-0.50) K/uL Baso # (Auto) 0.06 (0.00-0.30) K/uL Abs Immat Gran (auto) 0.01 (0.00-0.30) K/uL Imm/Tot Granulo (auto) 0.1 % D-Dimer Quant (PE/DVT) < 0.27 (0.00-0.50) ug/ml Sodium 140 (135-149) mmol/L Potassium 4.2 (3.6-5.1) mmol/L Chloride 104 (96-114) mmol/L Carbon Dioxide 31 (20-32) mmol/L Anion Gap 5 L (7-15) mEq/L BUN 12 (5-24) mg/dL Creatinine 0.8 (0.5-1.5) mg/dL Estimated Creat Clear 87.38 Estimated GFR 104 ml/min Glucose 91 (60-115) mg/dL Calcium 9.6 (8.4-10.6) mg/dL ECG Data Attestation: I personally reviewed and interpreted this ECG as follows: Prior ECG tracings: not available for review Interpretation: Is normal sinus rhythm with rate 67 beats per minute, short HI interval, normal QRS, no ST or T-wave abnormalities. Appears similar previous EKGs on file Discharge Plan Discharge Clinical Impression: RAD (reactive airway disease) with wheezing Qualifiers: Asthma severity: mild Asthma persistence: intermittent Asthma complication type: uncomplicated Qualified Code(s): J45.20 - Mild intermittent asthma, uncomplicated Patient Disposition: Home, Self-Care Condition: Stable Instructions: How to Use a Metered-Dose Inhaler and a Spacer (DC) Additional Instructions: Use the inhaler with the spacer as needed for your symptoms. I do recommend close follow-up with your primary care provider. Return to emergency department for new or worsening symptoms Prescriptions: New albuterol sulfate 90 mcg/actuation HFA aerosol inhaler 2 puff inhalation Q4-6H PRN (Reason: shortness of breath or wheezing) Qty: 8.5 0RF No Action DHA 200 mg capsule 200 mg PO DAILY cholecalciferol (vitamin D3) 25 mcg (1,000 unit) capsule 5,000 unit PO QDAY norethindrone (contraceptive) 0.35 mg tablet 0.35 mg PO QDAY Qty: 84 3RF loratadine [Claritin] 10 mg tablet 10 mg PO QDAY Follow Up/Referrals: Jaya Patricia MD [Primary Care Provider, Family Practice] Stand Alone Forms: [facility] Info Instructions
[2025-03-10 22:01] LABS: Hematocrit 40.6 % (33.0-51.0); Hemoglobin* 13.2 gm/dL (12.0-16.0); Immature Granulocytes Abs Auto 0.01 K/uL (0.00-0.30); Immature Granulocytes Pct Auto 0.1 %; Lymphocytes Absolute Auto 3.57 K/uL (0.90-2.90); Mean Corpuscular HGB Conc 33 gm/dL (32-36); Mean Corpuscular Hemoglobin 29 pg (26-34); Mean Corpuscular Volume 88 fL (80-100); RDW Coefficient of Variation % 13.1 % (11.5-15.5); Red Blood Count 4.62 m/uL (4.00-5.20); White Blood Count* 8.82 K/uL (4.50-11.00)
[2025-03-10 22:13] LABS: Chloride* 104 mmol/L (96-114); Sodium* 140 mmol/L (135-149)
[2025-03-10 22:14] LABS: Potassium* 4.2 mmol/L (3.6-5.1)
[2025-03-10 22:16] LABS: Blood Urea Nitrogen* 12 mg/dL (5-24); Creatinine* 0.8 mg/dL (0.5-1.5); Est. Creatinine Clearance* 87.38; Estimated Glomerular Filt Rate 104 ml/min
[2025-03-10 22:17] LABS: Anion Gap 5 mEq/L (7-15); Calcium* 9.6 mg/dL (8.4-10.6); Carbon Dioxide* 31 mmol/L (20-32); Glucose* 91 mg/dL (60-115)
[2025-03-10 22:24] LABS: Slide Review Reflex No
[2025-03-10 22:28] LABS: D Dimer Quantitative* < 0.27 ug/ml (0.00-0.50)
[2025-03-22 10:46] LABS: Troponin, Point-of-Care* 0.00 ng/ml (0.01-0.04)
== END 2025-03-10 23:20 | disposition home or self-care (01) ==
PROVIDERS: Emergency Provider Student in an Organized Health Care Education/Training Program; PCP Family Medicine
DX: J45.20 Mild intermittent asthma, uncomplicated (principal)
CPT/HCPCS: 36415; 80048; 84484; 85025; 85379; 87631; 93005; 99284